=== PATIENT | female | born 1965 | race Caucasian/White ===

== ENCOUNTER 2018-12-21 15:45 | Emergency (ER) | payer MEDICAID ==
[~2018-12-21] VITALS: Ht 170.2 cm; Wt 65.0 kg
[2018-12-21 15:53] VITALS: BP 168/89
[2018-12-21] MEDS ORDERED: IBUPROFEN 200 MG TABLET PO ONE (16:30)
--- NOTE | 2018-12-21 16:39 | NUR ---
PT WC'D TO ROOM 7 W/ C/O L KNEE PAIN AFTER MGLF TODAY. PT C/O PAIN 05/11. PT RESTING ON GURNEY.
[2018-12-21] MEDS ORDERED: IBUPROFEN 200 MG TABLET ONE (16:49)
== END 2018-12-21 17:36 | disposition home or self-care (01) ==
LOC: ED 17:32
DX: G89.11 Acute pain due to trauma (principal); M25.562 Pain in left knee; J44.9 Chronic obstructive pulmonary disease, unspecified; F17.200 Nicotine dependence, unspecified, uncomplicated; Z86.73 Personal history of transient ischemic attack (TIA), and cerebral infarction without residual deficits; E11.9 Type 2 diabetes mellitus without complications; W01.0XXA Fall on same level from slipping, tripping and stumbling without subsequent striking against object, initial encounter; Y93.89 Activity, other specified; Y92.89 Other specified places as the place of occurrence of the external cause; Y99.8 Other external cause status
CPT/HCPCS: 99283

== ENCOUNTER 2019-01-01 11:09 | Inpatient (IN) | payer MEDICAID, OTHER ==
[~2019-01-01] VITALS: Ht 170.2 cm; Wt 63.8 kg
--- NOTE | 2019-01-01 11:28 | NUR ---
PT TO ROOM, FS COMPLETED-READING HIGH-ERP NOTIFIED. PT PLACED IN GOWN.
[2019-01-01] MEDS ORDERED: SODIUM CHLORIDE 0.9% 1,000ML IVBOLUS ONE ×2 (12:00→13:00)
[2019-01-01] MEDS ORDERED: AMPICILLIN/SULBACTAM 3 GM in SODIUM CHLORIDE 0.9% 100 ML IV ONE (12:00)
[2019-01-01 12:03] LABS: BASOPHILS # (AUTO) 0.03 x10^3/uL (0-0.1); BASOPHILS % (AUTO) 0 % (0-1); EOSINOPHILS # (AUTO) 0.02 x10^3/uL (0-0.4); EOSINOPHILS % (AUTO) 0 % (1-7); LYMPHOCYTES # (AUTO) 0.88 x10^3/uL (1-3.4); LYMPHOCYTES % (AUTO) 6 % (22-44); MD NO; MEAN CORPUSCULAR HEMOGLOBIN 32.1 pg (27.0-34.8); MEAN CORPUSCULAR VOLUME 100.1 fL (80-100); MEAN PLATELET VOLUME 9.9 fL (7.4-10.4); MONOCYTES # (AUTO) 0.75 x10^3/uL (0.2-0.8); MONOCYTES % (AUTO) 5 % (2-9); NEUTROPHILS # (AUTO) 13.24 x10^3/uL (1.8-6.8); NEUTROPHILS % (AUTO) 89 % (42-75); PLATELET COUNT 367 x10^3/uL (130-400); RED BLOOD COUNT 4.17 x10^6/uL (3.82-5.3); RED CELL DISTRIBUTION WIDTH 13.7 % (9.6-15.2)
[2019-01-01] MEDS ORDERED: ONDANSETRON 2MG/ML, 2ML ONE (12:03)
[2019-01-01 12:08] LABS: PH, VENOUS 7.395 pH (7.320-7.420)
--- NOTE | 2019-01-01 12:14 | NUR ---
UA ORDERED/COLLECTED/SENT TO LAB. IV PLACED BY MEDIC, BC X 1 DRAWN WITH START. LAB DRAWN 2ND BC. PT ON BP CUFF, PULSE OX. XR COMPLETED. WARM BLANKET PROVIDED, CALL LIGHT WITHIN REACH. US AT BS.
[2019-01-01 12:16] LABS: ALANINE AMINOTRANSFERASE 54 U/L (12-78); ALBUMIN 3.1 g/dL (3.4-5.0); ANION GAP 13 mmol/L (5-15); CALCIUM 9.5 mg/dL (8.5-10.1); CHLORIDE 86 mmol/L (98-107)
--- NOTE | 2019-01-01 12:20 | NUR ---
PT ALSO REPORTS HOMELESSNESS, MOVED FROM [place] TO [place] AFTER "BEING KICKED OUT" AND NOW LIVING IN [place]. PT STATES SHE HASN'T TAKEN ANY MEDS FOR A WEEK, DOESN'T HAVE THEM. PT STATES SHE STILL MONITORS BLOOD SUGAR FOUR TIMES A DAY, LAST TAKEN THIS AM WITH READING IN 200S.
[2019-01-01 12:23] LABS: ALKALINE PHOSPHATASE 260 U/L (45-117); TOTAL PROTEIN 8.8 g/dL (6.4-8.2)
[2019-01-01] MEDS ORDERED: ONDANSETRON 2MG/ML, 2ML IVPush ONE (12:30)
[2019-01-01 12:33] LABS: ACETONE, SERUM Trace (10mg/dL) mg/dL (Negative)
[2019-01-01 12:35] LABS: C-REACTIVE PROTEIN, QUANT > 19.00 mg/dL (0.02-0.49)
[2019-01-01 12:48] LABS: HCT (SEDRATE) 41.7 % (34.6-47.8)
[2019-01-01] MEDS ORDERED: SODIUM CHLORIDE 0.9% 1,000 ML IV ONE (12:52)
[2019-01-01] MEDS ORDERED: INSULIN REGULAR 100 UNITS/ML, 3ML VIAL IV ONE (13:00)
[2019-01-01] MEDS ORDERED: SODIUM CHLORIDE FLUSH 10ML SYR IVF PRN (13:00)
[2019-01-01] MEDS ORDERED: INSULIN SINGLE DOSE, ER SQ-INSULIN ONE (13:02)
--- NOTE | 2019-01-01 13:14 | NUR ---
INSULIN GIVEN PER ERP ORDER. 2ND LITER NS INFUSING. PT REPOSITIONED IN BED. UA SENT. [facility] FINISHED ASSEESSMENT.
--- NOTE | 2019-01-01 13:14 | NUR ---
MED REQUEST TO PHARMACY FOR ANTIBIOTIC.
[2019-01-01] MEDS ORDERED: ONDANSETRON 2MG/ML, 2ML IVPush PRN (13:30)
[2019-01-01] MEDS ORDERED: GLUCAGON 1 MG IM PRN (13:30)
[2019-01-01] MEDS ORDERED: LABETALOL 5MG/ML, 20ML IVPush PRN (13:30)
[2019-01-01] MEDS ORDERED: VANCOMYCIN PER PHARMACY MC PRN (13:30)
[2019-01-01] MEDS ORDERED: DEXTROSE 4 GM TAB.CHEW PO PRN (13:30)
[2019-01-01] MEDS ORDERED: ONDANSETRON ODT 4 MG PO PRN (13:30)
[2019-01-01] MEDS ORDERED: ZOSYN PER PHARMACY MC PRN (13:30)
[2019-01-01] MEDS ORDERED: hydrALAzine 20 MG/ML, 1ML IVPush PRN (13:30)
[2019-01-01] MEDS ORDERED: DEXTROSE 50%, 50ML SYRINGE IVPush PRN (13:30)
[2019-01-01 13:35] LABS: MICROSCOPIC AUTO
--- NOTE | 2019-01-01 13:41 | NUR ---
CALLED CARDIOVASCULAR US
[2019-01-01 13:42] LABS: CULTURE INDICATED? YES
[2019-01-01 13:51] LABS: INTERNATIONAL NORMALIZED RATIO 1.02 (0.93-1.1); PROTHROMBIN TIME 10.7 Seconds (9.6-11.5)
--- NOTE | 2019-01-01 13:51 | NUR ---
PT TO MRI, TO BE TRANSPORTED TO FLOOR FOLLOWING MRI EXAM.
[2019-01-01] MEDS ORDERED: GADOBUTROL 7.5 MMOL/7.5 ML PFS ONE (14:47)
[2019-01-01 15:01] VITALS: BP 111/81
[2019-01-01] MEDS: SODIUM CHLORIDE 0.9% 1,000 ML IV SCH ×2 (16:01→22:38)
[2019-01-01] MEDS: PIPERACILLIN/TAZO/PMX 3.375GM 50 ML IV SCH ×2 (16:02→20:29)
[2019-01-01 16:16] LABS: HEMOGLOBIN A1C 8.3 % (4.2-6.3)
[2019-01-01] MEDS: HEPARIN 5,000 UNITS/ML, 1ML SQ SCH ×2 (16:19→20:30)
[2019-01-01] MEDS: morphine SULFATE 10 MG/ML, 1ML IVPush PRN (16:19)
[2019-01-01] MEDS: INSULIN LISPRO 100 UNITS/ML, PEN SQ-INSULIN SCH ×2 (16:40→20:31)
[2019-01-01] MEDS: LINEZOLID PMX 600MG/300ML 300 ML IV SCH (18:38)
[2019-01-01] MEDS: OXYcodone IR 5MG TABLET PO PRN (18:38)
[2019-01-01 19:14] VITALS: BP 96/54
[2019-01-01] MEDS: ATORVASTATIN 40 MG TABLET PO SCH (20:29)
[2019-01-01] MEDS: INSULIN GLARGINE 100 UNITS/ML, PEN SQ-INSULIN SCH (20:31)
[2019-01-01] MEDS ORDERED: INSULIN GLARGINE 100 UNITS/ML, PEN SQ-INSULIN SCH (21:00)
[2019-01-01] MEDS: SODIUM CHLORIDE FLUSH 10ML SYR IVF SCH (21:00)
[2019-01-02] MEDS: SODIUM CHLORIDE 0.9% 1,000 ML IV SCH ×2 (00:36→19:44)
[2019-01-02] MEDS: OXYcodone IR 5MG TABLET PO PRN ×3 (00:45→18:52)
[2019-01-02 01:05] VITALS: BP 98/52
[2019-01-02] MEDS: LINEZOLID PMX 600MG/300ML 300 ML IV SCH (01:14)
[2019-01-02] MEDS: PIPERACILLIN/TAZO/PMX 3.375GM 50 ML IV SCH ×3 (03:14→19:40)
[2019-01-02] MEDS: INSULIN LISPRO 100 UNITS/ML, PEN SQ-INSULIN SCH ×5 (05:01→19:43)
[2019-01-02] MEDS: HEPARIN 5,000 UNITS/ML, 1ML SQ SCH ×3 (05:01→20:01)
[2019-01-02 05:39] LABS: MEAN CORPUSCULAR HEMOGLOBIN 32.5 pg (27.0-34.8); MEAN CORPUSCULAR HGB CONC 33.2 g/dL (32.4-35.8); MEAN CORPUSCULAR VOLUME 98.1 fL (80-100); MEAN PLATELET VOLUME 9.5 fL (7.4-10.4); PLATELET COUNT 409 x10^3/uL (130-400); RED BLOOD COUNT 3.62 x10^6/uL (3.82-5.3); RED CELL DISTRIBUTION WIDTH 13.9 % (9.6-15.2)
[2019-01-02 05:41] LABS: CHLORIDE 103 mmol/L (98-107)
[2019-01-02 05:51] LABS: ALANINE AMINOTRANSFERASE 45 U/L (12-78); ALBUMIN 2.2 g/dL (3.4-5.0); ALKALINE PHOSPHATASE 192 U/L (45-117); ANION GAP 8 mmol/L (5-15); CALCIUM 8.2 mg/dL (8.5-10.1); CREATININE 0.91 mg/dL (0.55-1.02); TOTAL PROTEIN 6.7 g/dL (6.4-8.2)
[2019-01-02 06:20] LABS: BASOPHILS # (AUTO) 0.01 x10^3/uL (0-0.1); BASOPHILS % (AUTO) 0 % (0-1); EOSINOPHILS # (AUTO) 0.15 x10^3/uL (0-0.4); EOSINOPHILS % (AUTO) 1 % (1-7); LYMPHOCYTES # (AUTO) 1.19 x10^3/uL (1-3.4); LYMPHOCYTES % (AUTO) 7 % (22-44); MD SCAN; MONOCYTES # (AUTO) 0.09 x10^3/uL (0.2-0.8); MONOCYTES % (AUTO) 1 % (2-9); NEUTROPHILS % (AUTO) 91 % (42-75)
[2019-01-02 07:08] VITALS: BP 93/61
[2019-01-02] MEDS: SODIUM CHLORIDE FLUSH 10ML SYR IVF SCH ×2 (08:07→20:00)
[2019-01-02] MEDS: ASPIRIN 81 MG TABLET CHEW PO SCH (08:07)
[2019-01-02] MEDS: INSULIN GLARGINE 100 UNITS/ML, PEN SQ-INSULIN SCH ×2 (08:09→20:01)
[2019-01-02] MEDS ORDERED: OMNIPAQUE 350 MG/ML, 150 ML BOTTLE ONE (09:22)
[2019-01-02] MEDS ORDERED: VANCOMYCIN PER PHARMACY MC PRN (11:00)
[2019-01-02] MEDS ORDERED: VANCOMYCIN PMX 1GM/200ML 200 ML IV ONE (11:00)
[2019-01-02] MEDS ORDERED: PHARMACOKINETIC MONITORING MC PRN (11:30)
[2019-01-02] MEDS: VANCOMYCIN 2,000 MG in SODIUM CHLORIDE 0.9% 500 ML IV SCH (12:25)
[2019-01-02 15:17] VITALS: BP 108/68
[2019-01-02 17:42] LABS: ANION GAP 9 mmol/L (5-15); CHLORIDE 104 mmol/L (98-107); CREATININE 0.81 mg/dL (0.55-1.02)
[2019-01-02 18:47] VITALS: BP 115/84
[2019-01-02] MEDS: ATORVASTATIN 40 MG TABLET PO SCH (20:00)
[2019-01-03] MEDS: INSULIN LISPRO 100 UNITS/ML, PEN SQ-INSULIN SCH ×6 (00:28→20:19)
[2019-01-03 00:29] VITALS: BP 112/73
[2019-01-03] MEDS: PIPERACILLIN/TAZO/PMX 3.375GM 50 ML IV SCH ×2 (00:35→08:06)
[2019-01-03] MEDS: OXYcodone IR 5MG TABLET PO PRN ×2 (00:39→06:09)
[2019-01-03] MEDS: SODIUM CHLORIDE 0.9% 1,000 ML IV SCH ×2 (04:44→20:16)
[2019-01-03] MEDS: HEPARIN 5,000 UNITS/ML, 1ML SQ SCH ×3 (04:59→20:03)
[2019-01-03 05:58] LABS: MEAN CORPUSCULAR HEMOGLOBIN 32.4 pg (27.0-34.8); MEAN CORPUSCULAR HGB CONC 33.1 g/dL (32.4-35.8); MEAN CORPUSCULAR VOLUME 97.8 fL (80-100); MEAN PLATELET VOLUME 9.1 fL (7.4-10.4); PLATELET COUNT 406 x10^3/uL (130-400); RED BLOOD COUNT 3.27 x10^6/uL (3.82-5.3)
[2019-01-03] MEDS: VANCOMYCIN 2,000 MG in SODIUM CHLORIDE 0.9% 500 ML IV SCH (06:04)
[2019-01-03 06:05] LABS: CHLORIDE 106 mmol/L (98-107)
[2019-01-03 06:13] LABS: ALANINE AMINOTRANSFERASE 46 U/L (12-78); ALBUMIN 1.8 g/dL (3.4-5.0); ALKALINE PHOSPHATASE 165 U/L (45-117); ANION GAP 9 mmol/L (5-15); BILIRUBIN,TOTAL 0.9 mg/dL (0.2-1.0); CALCIUM 7.7 mg/dL (8.5-10.1); CREATININE 0.75 mg/dL (0.55-1.02); TOTAL PROTEIN 5.8 g/dL (6.4-8.2)
[2019-01-03 07:01] LABS: BASOPHILS # (AUTO) 0.06 x10^3/uL (0-0.1); BASOPHILS % (AUTO) 0 % (0-1); EOSINOPHILS # (AUTO) 0.17 x10^3/uL (0-0.4); EOSINOPHILS % (AUTO) 1 % (1-7); LYMPHOCYTES # (AUTO) 1.19 x10^3/uL (1-3.4); LYMPHOCYTES % (AUTO) 8 % (22-44); MD SCAN; MONOCYTES # (AUTO) 0.53 x10^3/uL (0.2-0.8); MONOCYTES % (AUTO) 3 % (2-9); NEUTROPHILS # (AUTO) 13.85 x10^3/uL (1.8-6.8); NEUTROPHILS % (AUTO) 88 % (42-75)
[2019-01-03 07:14] VITALS: BP 117/77
[2019-01-03] MEDS: SODIUM CHLORIDE FLUSH 10ML SYR IVF SCH ×2 (08:06→20:16)
[2019-01-03] MEDS: ASPIRIN 81 MG TABLET CHEW PO SCH (08:07)
[2019-01-03] MEDS: morphine SULFATE 10 MG/ML, 1ML IVPush PRN ×3 (08:07→17:22)
[2019-01-03] MEDS: INSULIN GLARGINE 100 UNITS/ML, PEN SQ-INSULIN SCH (08:12)
[2019-01-03] MEDS: POTASSIUM CHLORIDE 20 MEQ TAB.ER.PRT PO SCH ×3 (08:15→13:49)
[2019-01-03] MEDS ORDERED: MAGNESIUM SULFATE PMX 4GM/100M 100 ML IV ONE (08:30)
[2019-01-03] MEDS ORDERED: POTASSIUM PHOSPHATE 44 MEQ in SODIUM CHLORIDE 0.9% 500 ML IV ONE (08:30)
[2019-01-03] MEDS ORDERED: VANCOMYCIN 1,300 MG in SODIUM CHLORIDE 0.9% 250 ML IV SCH (11:00)
[2019-01-03 11:08] LABS: MEAN CORPUSCULAR HEMOGLOBIN 31.6 pg (27.0-34.8); MEAN CORPUSCULAR HGB CONC 32.8 g/dL (32.4-35.8); MEAN CORPUSCULAR VOLUME 96.1 fL (80-100); MEAN PLATELET VOLUME 8.2 fL (7.4-10.4); PLATELET COUNT 422 x10^3/uL (130-400); RED BLOOD COUNT 3.14 x10^6/uL (3.82-5.3); RED CELL DISTRIBUTION WIDTH 14.4 % (9.6-15.2)
[2019-01-03 11:21] LABS: BASOPHILS # (AUTO) 0.02 x10^3/uL (0-0.1); BASOPHILS % (AUTO) 0 % (0-1); EOSINOPHILS % (AUTO) 1 % (1-7); LYMPHOCYTES # (AUTO) 1.47 x10^3/uL (1-3.4); LYMPHOCYTES % (AUTO) 9 % (22-44); MD SCAN; MONOCYTES # (AUTO) 0.88 x10^3/uL (0.2-0.8); MONOCYTES % (AUTO) 6 % (2-9); NEUTROPHILS # (AUTO) 13.39 x10^3/uL (1.8-6.8); NEUTROPHILS % (AUTO) 84 % (42-75)
[2019-01-03 12:35] VITALS: BP 104/65
[2019-01-03] MEDS ORDERED: LIDOCAINE-MPF 1%, 5ML ONE ×2 (13:52)
[2019-01-03] MEDS ORDERED: PROTAMINE SULFATE 10 MG/ML, 25ML ONE (13:58)
[2019-01-03] MEDS ORDERED: FLUMAZENIL 0.1 MG/1 ML, 5ML ONE (13:58)
[2019-01-03] MEDS ORDERED: MIDAZOLAM 1 MG/ML, 5ML ONE (13:58)
[2019-01-03] MEDS ORDERED: FENTANYL PF 100 MCG/2ML ONE ×2 (13:58)
[2019-01-03] MEDS ORDERED: HEPARIN 1,000 UNITS/ML, 10ML ONE (13:58)
[2019-01-03] MEDS ORDERED: NALOXONE 1 MG/ML, 2ML ONE (13:58)
[2019-01-03] MEDS ORDERED: DIPHENHYDRAMINE 50 MG/ML, 1ML ONE (14:46)
[2019-01-03] MEDS ORDERED: VISIPAQUE 270 MG/ML, 50ML BOTTLE ONE (16:06)
[2019-01-03] MEDS: PIPERACILLIN/TAZO/PMX 4.5GM 100 ML IV SCH (17:17)
[2019-01-03] MEDS: VANCOMYCIN 1,300 MG in SODIUM CHLORIDE 0.9% 250 ML IV SCH (17:53)
[2019-01-03 19:09] VITALS: BP 130/82
[2019-01-03] MEDS: ATORVASTATIN 40 MG TABLET PO SCH (20:15)
[2019-01-03] MEDS ORDERED: CLOPIDOGREL 300 MG TABLET PO ONE (21:00)
[2019-01-04] MEDS: PIPERACILLIN/TAZO/PMX 4.5GM 100 ML IV SCH ×2 (00:24→08:38)
[2019-01-04] MEDS: INSULIN LISPRO 100 UNITS/ML, PEN SQ-INSULIN SCH ×6 (00:24→20:21)
[2019-01-04] MEDS: OXYcodone IR 5MG TABLET PO PRN ×4 (00:57→22:55)
[2019-01-04 01:03] VITALS: BP 118/68
[2019-01-04] MEDS: SODIUM CHLORIDE 0.9% 1,000 ML IV SCH ×3 (05:28→20:22)
[2019-01-04] MEDS: HEPARIN 5,000 UNITS/ML, 1ML SQ SCH ×3 (05:29→20:22)
[2019-01-04] MEDS: VANCOMYCIN 1,300 MG in SODIUM CHLORIDE 0.9% 250 ML IV SCH (05:29)
[2019-01-04 05:55] LABS: MEAN CORPUSCULAR HEMOGLOBIN 31.5 pg (27.0-34.8); MEAN CORPUSCULAR HGB CONC 32.8 g/dL (32.4-35.8); MEAN CORPUSCULAR VOLUME 96.2 fL (80-100); PLATELET COUNT 395 x10^3/uL (130-400); RED BLOOD COUNT 3.04 x10^6/uL (3.82-5.3); RED CELL DISTRIBUTION WIDTH 14.2 % (9.6-15.2)
[2019-01-04 06:00] LABS: ANION GAP 10 mmol/L (5-15); CALCIUM 7.3 mg/dL (8.5-10.1); CHLORIDE 109 mmol/L (98-107); CREATININE 0.69 mg/dL (0.55-1.02)
[2019-01-04 06:40] LABS: BASOPHILS # (AUTO) 0.02 x10^3/uL (0-0.1); BASOPHILS % (AUTO) 0 % (0-1); EOSINOPHILS # (AUTO) 0.11 x10^3/uL (0-0.4); EOSINOPHILS % (AUTO) 1 % (1-7); LYMPHOCYTES # (AUTO) 0.99 x10^3/uL (1-3.4); LYMPHOCYTES % (AUTO) 7 % (22-44); MD SCAN; MONOCYTES # (AUTO) 0.81 x10^3/uL (0.2-0.8); MONOCYTES % (AUTO) 6 % (2-9); NEUTROPHILS # (AUTO) 12.54 x10^3/uL (1.8-6.8); NEUTROPHILS % (AUTO) 87 % (42-75)
[2019-01-04 08:26] VITALS: BP 105/61
[2019-01-04] MEDS: CLOPIDOGREL 75 MG TABLET PO SCH (08:38)
[2019-01-04] MEDS: SODIUM CHLORIDE FLUSH 10ML SYR IVF SCH ×2 (08:38→20:22)
[2019-01-04] MEDS: ASPIRIN 81 MG TABLET CHEW PO SCH (08:38)
[2019-01-04] MEDS: NAFCILLIN 2 GM in DEXTROSE 5% 100 ML IV SCH ×3 (12:49→20:21)
[2019-01-04 12:58] VITALS: BP 120/77
[2019-01-04] MEDS ORDERED: POTASSIUM CHLORIDE 20 MEQ TAB.ER.PRT PO ONE (19:30)
[2019-01-04 20:00] VITALS: BP 105/66
[2019-01-04] MEDS: ATORVASTATIN 40 MG TABLET PO SCH (20:22)
[2019-01-05] MEDS: INSULIN LISPRO 100 UNITS/ML, PEN SQ-INSULIN SCH ×6 (00:11→21:11)
[2019-01-05] MEDS: NAFCILLIN 2 GM in DEXTROSE 5% 100 ML IV SCH ×7 (00:11→23:41)
[2019-01-05 01:36] VITALS: BP 97/62
[2019-01-05] MEDS: HEPARIN 5,000 UNITS/ML, 1ML SQ SCH (04:30)
[2019-01-05] MEDS: OXYcodone IR 5MG TABLET PO PRN (04:30)
[2019-01-05] MEDS: SODIUM CHLORIDE 0.9% 1,000 ML IV SCH ×2 (04:37→13:00)
[2019-01-05 05:59] LABS: MEAN CORPUSCULAR HEMOGLOBIN 31.8 pg (27.0-34.8); MEAN CORPUSCULAR HGB CONC 33.1 g/dL (32.4-35.8); MEAN CORPUSCULAR VOLUME 95.8 fL (80-100); MEAN PLATELET VOLUME 7.6 fL (7.4-10.4); PLATELET COUNT 433 x10^3/uL (130-400); RED BLOOD COUNT 3.15 x10^6/uL (3.82-5.3); RED CELL DISTRIBUTION WIDTH 14.5 % (9.6-15.2)
[2019-01-05 06:01] LABS: ANION GAP 7 mmol/L (5-15); CALCIUM 7.4 mg/dL (8.5-10.1); CHLORIDE 108 mmol/L (98-107); CREATININE 0.72 mg/dL (0.55-1.02)
[2019-01-05 06:21] LABS: MD YES
[2019-01-05 06:23] LABS: BAND#(MANUAL) 0.27 x10^3/uL; BANDS%(MANUAL) 2 % (0-7); BASOS#(MANUAL) 0.14 x10^3/uL (0-0.1); BASOS% (MANUAL) 1 % (0-1); EOS#(MANUAL) 0.27 x10^3/uL (0.0-0.4); EOS% (MANUAL) 2 % (1-7); LYMPH#(MANUAL) 1.37 x10^3/uL (1-3.4); LYMPHS% (MANUAL) 10 % (22-44); METAMYELOCYTES# (MANUAL) 0.27 x10^3/uL (0-0); METAMYELOCYTES% (MANUAL) 2 % (0-1); MONOS#(MANUAL) 1.23 x10^3/uL (0.3-2.7); MONOS% (MANUAL) 9 % (2-9); SEG#(MANUAL) 10.14 x10^3/uL (1.8-6.8); SEGS% (MANUAL) 74 % (42-75)
[2019-01-05 06:24] LABS: <PLATELET ESTIMATE> INCREASED; <PLT MORPHOLOGY> NORMAL PLT MORPH; POLYCHROMASIA 1+
[2019-01-05 07:22] VITALS: BP 104/62
[2019-01-05] MEDS: SODIUM CHLORIDE FLUSH 10ML SYR IVF SCH ×2 (07:28→21:10)
[2019-01-05] MEDS: POTASSIUM CHLORIDE 20 MEQ TAB.ER.PRT PO SCH ×2 (07:30→15:14)
[2019-01-05] MEDS: ASPIRIN 81 MG TABLET CHEW PO SCH (08:16)
[2019-01-05] MEDS: CLOPIDOGREL 75 MG TABLET PO SCH (08:17)
[2019-01-05] MEDS ORDERED: FENTANYL PF 100 MCG/2ML ONE ×4 (08:31→10:21)
[2019-01-05] MEDS ORDERED: MIDAZOLAM 1 MG/ML, 2ML ONE ×2 (08:31→11:20)
[2019-01-05] MEDS ORDERED: ROCURONIUM 10MG/ML,5ML ONE (09:32)
[2019-01-05] MEDS ORDERED: SUCCINYLCHOLINE 20 MG/ML, 10ML ONE (09:32)
[2019-01-05] MEDS ORDERED: CEFAZOLIN 1,000 MG ONE (09:32)
[2019-01-05] MEDS ORDERED: PROPOFOL 10 MG/ML, 20ML ONE (09:32)
[2019-01-05] MEDS ORDERED: HYDROmorphone 2 MG/ML, 1ML ONE ×2 (10:21→11:20)
[2019-01-05] MEDS: HYDROmorphone 2 MG/ML, 1ML IVPush PRN ×6 (10:24→11:48)
[2019-01-05] MEDS: FENTANYL PF 100 MCG/2ML IV PRN ×3 (10:30→10:50)
[2019-01-05] MEDS ORDERED: ONDANSETRON 2MG/ML, 2ML IV PRN ×2 (11:00→13:00)
[2019-01-05] MEDS ORDERED: ACETAMINOPHEN 325 MG TABLET PO PRN (11:00)
[2019-01-05] MEDS ORDERED: LABETALOL 5MG/ML, 20ML IV PRN (11:00)
[2019-01-05] MEDS ORDERED: hydrALAzine 20 MG/ML, 1ML IV PRN (11:00)
[2019-01-05] MEDS ORDERED: OXYcodone 5 MG/5 ML ORAL.SOL UDC PO PRN (11:00)
[2019-01-05] MEDS ORDERED: MIDAZOLAM 1 MG/ML, 2ML IV PRN (11:00)
[2019-01-05] MEDS ORDERED: OXYcodone 5 MG/5 ML ORAL.SOL UDC ONE (11:01)
[2019-01-05] MEDS ORDERED: KETOROLAC 30 MG/1 ML IV PRN (13:00)
[2019-01-05 13:59] VITALS: BP 109/71
[2019-01-05] MEDS: D5%-0.45NACL+KCL 20MEQ 1,000 ML IV SCH (14:37)
[2019-01-05] MEDS: ENOXAPARIN 40 MG/0.4 ML SQ SCH (15:14)
[2019-01-05 19:03] VITALS: BP 112/66
[2019-01-05] MEDS: ATORVASTATIN 40 MG TABLET PO SCH (21:11)
[2019-01-06 00:26] VITALS: BP 110/68
[2019-01-06] MEDS: INSULIN LISPRO 100 UNITS/ML, PEN SQ-INSULIN SCH ×6 (00:57→21:00)
[2019-01-06] MEDS: NAFCILLIN 2 GM in DEXTROSE 5% 100 ML IV SCH ×4 (04:25→22:01)
[2019-01-06 05:27] LABS: MEAN CORPUSCULAR HGB CONC 32.6 g/dL (32.4-35.8); MEAN CORPUSCULAR VOLUME 98.2 fL (80-100); MEAN PLATELET VOLUME 7.6 fL (7.4-10.4); PLATELET COUNT 505 x10^3/uL (130-400); RED BLOOD COUNT 3.08 x10^6/uL (3.82-5.3); RED CELL DISTRIBUTION WIDTH 14.8 % (9.6-15.2)
[2019-01-06 05:34] LABS: ANION GAP 5 mmol/L (5-15); CALCIUM 7.6 mg/dL (8.5-10.1); CHLORIDE 109 mmol/L (98-107)
[2019-01-06 05:35] LABS: ALBUMIN 1.5 g/dL (3.4-5.0); CREATININE 0.67 mg/dL (0.55-1.02)
[2019-01-06 05:50] LABS: MD YES
[2019-01-06 05:52] LABS: BAND#(MANUAL) 0.25 x10^3/uL; BANDS%(MANUAL) 3 % (0-7); BASOS#(MANUAL) 0.17 x10^3/uL (0-0.1); BASOS% (MANUAL) 2 % (0-1); EOS#(MANUAL) 0.34 x10^3/uL (0.0-0.4); EOS% (MANUAL) 4 % (1-7); LYMPH#(MANUAL) 1.09 x10^3/uL (1-3.4); LYMPHS% (MANUAL) 13 % (22-44); METAMYELOCYTES# (MANUAL) 0.17 x10^3/uL (0-0); METAMYELOCYTES% (MANUAL) 2 % (0-1); MONOS% (MANUAL) 6 % (2-9); MYELOCYTES# (MANUAL) 0.17 x10^3/uL (0-0); MYELOCYTES% (MANUAL) 2 % (0-0); SEG#(MANUAL) 5.71 x10^3/uL (1.8-6.8); SEGS% (MANUAL) 68 % (42-75)
[2019-01-06 05:53] LABS: <PLATELET ESTIMATE> INCREASED; <PLT MORPHOLOGY> NORMAL PLT MORPH; POLYCHROMASIA 1+
[2019-01-06] MEDS: SODIUM CHLORIDE FLUSH 10ML SYR IVF SCH ×2 (07:10→22:01)
[2019-01-06 08:00] VITALS: BP 130/89
[2019-01-06] MEDS: ASPIRIN 81 MG TABLET CHEW PO SCH (09:00)
[2019-01-06] MEDS: D5%-0.45NACL+KCL 20MEQ 1,000 ML IV SCH (09:00)
[2019-01-06] MEDS: CLOPIDOGREL 75 MG TABLET PO SCH (09:00)
[2019-01-06 12:35] VITALS: BP 101/70
[2019-01-06] MEDS: ENOXAPARIN 40 MG/0.4 ML SQ SCH (16:11)
[2019-01-06 18:41] VITALS: BP 144/78
[2019-01-06 19:01] VITALS: BP 119/76
[2019-01-06] MEDS: ATORVASTATIN 40 MG TABLET PO SCH (22:01)
[2019-01-07 01:10] VITALS: BP 126/79
[2019-01-07] MEDS: NAFCILLIN 2 GM in DEXTROSE 5% 100 ML IV SCH ×6 (02:13→21:04)
[2019-01-07] MEDS: SODIUM CHLORIDE FLUSH 10ML SYR IVF SCH ×2 (07:24→20:58)
[2019-01-07 08:00] VITALS: BP 100/66
[2019-01-07] MEDS: D5%-0.45NACL+KCL 20MEQ 1,000 ML IV SCH ×2 (09:12→21:02)
[2019-01-07] MEDS: INSULIN LISPRO 100 UNITS/ML, PEN SQ-INSULIN SCH ×4 (09:14→20:48)
[2019-01-07] MEDS: CLOPIDOGREL 75 MG TABLET PO SCH (09:15)
[2019-01-07] MEDS: ASPIRIN 81 MG TABLET CHEW PO SCH (09:15)
[2019-01-07 14:21] VITALS: BP 124/73
[2019-01-07] MEDS: ENOXAPARIN 40 MG/0.4 ML SQ SCH (17:13)
[2019-01-07 19:16] VITALS: BP 110/72
[2019-01-07] MEDS: ATORVASTATIN 40 MG TABLET PO SCH (20:58)
[2019-01-08 00:21] VITALS: BP 125/75
[2019-01-08] MEDS: NAFCILLIN 2 GM in DEXTROSE 5% 100 ML IV SCH ×6 (01:23→22:02)
[2019-01-08 07:30] VITALS: BP 123/80
[2019-01-08] MEDS: SODIUM CHLORIDE FLUSH 10ML SYR IVF SCH ×2 (08:19→20:38)
[2019-01-08] MEDS: INSULIN LISPRO 100 UNITS/ML, PEN SQ-INSULIN SCH ×4 (08:19→20:37)
[2019-01-08] MEDS: CLOPIDOGREL 75 MG TABLET PO SCH (08:19)
[2019-01-08] MEDS: ASPIRIN 81 MG TABLET CHEW PO SCH (08:19)
[2019-01-08 14:00] VITALS: BP 122/75
[2019-01-08] MEDS: D5%-0.45NACL+KCL 20MEQ 1,000 ML IV SCH (14:18)
[2019-01-08] MEDS: ENOXAPARIN 40 MG/0.4 ML SQ SCH (17:40)
[2019-01-08 19:05] VITALS: BP 100/61
[2019-01-08] MEDS: ATORVASTATIN 40 MG TABLET PO SCH (20:37)
[2019-01-09 01:35] VITALS: BP 107/65
[2019-01-09] MEDS: NAFCILLIN 2 GM in DEXTROSE 5% 100 ML IV SCH ×3 (01:53→10:00)
[2019-01-09] MEDS: D5%-0.45NACL+KCL 20MEQ 1,000 ML IV SCH ×2 (04:00→18:04)
[2019-01-09 05:59] LABS: HCT (SEDRATE) 29.9 % (34.6-47.8)
[2019-01-09 07:01] VITALS: BP 98/62
[2019-01-09] MEDS: CLOPIDOGREL 75 MG TABLET PO SCH (08:28)
[2019-01-09] MEDS: ASPIRIN 81 MG TABLET CHEW PO SCH (08:28)
[2019-01-09] MEDS: INSULIN LISPRO 100 UNITS/ML, PEN SQ-INSULIN SCH ×4 (08:29→22:33)
[2019-01-09] MEDS: SODIUM CHLORIDE FLUSH 10ML SYR IVF SCH ×2 (09:00→20:48)
[2019-01-09] MEDS ORDERED: LORazepam 2 MG/ML, 1ML IVPush ONE (10:00)
[2019-01-09] MEDS ORDERED: HYDROmorphone 1 MG/ML, 1ML INJ IV ONE (10:00)
[2019-01-09] MEDS ORDERED: HYDROmorphone 2 MG/ML, 1ML ONE (10:08)
[2019-01-09] MEDS: CEFAZOLIN PMX 1GM/50ML 50 ML IV SCH ×2 (12:07→18:04)
[2019-01-09 12:58] VITALS: BP 110/70
[2019-01-09] MEDS: ENOXAPARIN 40 MG/0.4 ML SQ SCH (18:04)
[2019-01-09 18:51] VITALS: BP 134/75
[2019-01-09] MEDS: ATORVASTATIN 40 MG TABLET PO SCH (20:48)
[2019-01-09] MEDS: morphine SULFATE 10 MG/ML, 1ML IVPush PRN (20:48)
[2019-01-09] MEDS: OXYcodone IR 5MG TABLET PO PRN (22:33)
[2019-01-10 01:11] VITALS: BP 105/72
[2019-01-10] MEDS: morphine SULFATE 10 MG/ML, 1ML IVPush PRN ×6 (01:11→23:31)
[2019-01-10] MEDS: CEFAZOLIN PMX 1GM/50ML 50 ML IV SCH ×3 (02:40→18:30)
[2019-01-10] MEDS: OXYcodone IR 5MG TABLET PO PRN ×2 (03:16→19:50)
[2019-01-10] MEDS: D5%-0.45NACL+KCL 20MEQ 1,000 ML IV SCH ×2 (06:00→23:31)
[2019-01-10 07:35] VITALS: BP 135/80
[2019-01-10] MEDS: CLOPIDOGREL 75 MG TABLET PO SCH (08:36)
[2019-01-10] MEDS: ASPIRIN 81 MG TABLET CHEW PO SCH (08:36)
[2019-01-10] MEDS: INSULIN LISPRO 100 UNITS/ML, PEN SQ-INSULIN SCH ×4 (08:36→19:45)
[2019-01-10] MEDS: SODIUM CHLORIDE FLUSH 10ML SYR IVF SCH ×2 (08:42→19:37)
[2019-01-10 13:52] VITALS: BP 104/69
[2019-01-10] MEDS: ENOXAPARIN 40 MG/0.4 ML SQ SCH (16:40)
[2019-01-10 19:26] VITALS: BP 106/67
[2019-01-10] MEDS: ATORVASTATIN 40 MG TABLET PO SCH (19:37)
[2019-01-10] MEDS: CEFAZOLIN 2,000 MG in SODIUM CHLORIDE 0.9% 50 ML IV SCH (19:41)
[2019-01-11] VITALS (7 sets, daily range): BP systolic 89–108; BP diastolic 61–75
[2019-01-11] MEDS: CEFAZOLIN 2,000 MG in SODIUM CHLORIDE 0.9% 50 ML IV SCH (03:18)
[2019-01-11] MEDS: OXYcodone IR 5MG TABLET PO PRN ×2 (05:10→11:48)
[2019-01-11] MEDS: CLOPIDOGREL 75 MG TABLET PO SCH (08:28)
[2019-01-11] MEDS: ASPIRIN 81 MG TABLET CHEW PO SCH (08:28)
[2019-01-11] MEDS: INSULIN LISPRO 100 UNITS/ML, PEN SQ-INSULIN SCH ×4 (08:28→19:36)
[2019-01-11] MEDS: SODIUM CHLORIDE FLUSH 10ML SYR IVF SCH ×2 (08:29→19:42)
[2019-01-11] MEDS: ENOXAPARIN 40 MG/0.4 ML SQ SCH (08:58)
[2019-01-11] MEDS: morphine SULFATE 10 MG/ML, 1ML IVPush PRN ×3 (09:02→19:40)
[2019-01-11] MEDS ORDERED: SODIUM CHLORIDE 0.9%, 500ML IVBOLUS ONE (09:30)
[2019-01-11] MEDS ORDERED: CEFAZOLIN PMX 2GM/50ML 50 ML IVPB SCH ×2 (10:00→11:30)
[2019-01-11] MEDS: CEFAZOLIN PMX 2GM/100ML 100 ML IVPB SCH ×2 (11:49→19:41)
[2019-01-11] MEDS: ATORVASTATIN 40 MG TABLET PO SCH (19:41)
[2019-01-12 01:31] VITALS: BP 99/65
[2019-01-12] MEDS: OXYcodone IR 5MG TABLET PO PRN ×3 (01:44→23:45)
[2019-01-12] MEDS: CEFAZOLIN PMX 2GM/100ML 100 ML IVPB SCH ×3 (03:55→20:52)
[2019-01-12] MEDS: morphine SULFATE 10 MG/ML, 1ML IVPush PRN ×5 (06:31→20:52)
[2019-01-12] MEDS: ENOXAPARIN 40 MG/0.4 ML SQ SCH (08:29)
[2019-01-12] MEDS: CLOPIDOGREL 75 MG TABLET PO SCH (09:00)
[2019-01-12] MEDS: ASPIRIN 81 MG TABLET CHEW PO SCH (09:00)
[2019-01-12] MEDS: SODIUM CHLORIDE FLUSH 10ML SYR IVF SCH ×2 (09:01→20:53)
[2019-01-12] MEDS: INSULIN LISPRO 100 UNITS/ML, PEN SQ-INSULIN SCH ×4 (09:01→21:14)
[2019-01-12 09:44] VITALS: BP 101/6
[2019-01-12 10:35] VITALS: BP 103/63
[2019-01-12 14:10] VITALS: BP 102/68
[2019-01-12 19:29] VITALS: BP 102/62
[2019-01-12] MEDS: ATORVASTATIN 40 MG TABLET PO SCH (20:52)
[2019-01-13 01:08] VITALS: BP 108/77
[2019-01-13] MEDS: morphine SULFATE 10 MG/ML, 1ML IVPush PRN ×3 (01:12→20:09)
[2019-01-13 03:39] LABS: CREATININE 0.85 mg/dL (0.55-1.02)
[2019-01-13] MEDS: CEFAZOLIN PMX 2GM/100ML 100 ML IVPB SCH ×3 (04:51→21:13)
[2019-01-13] MEDS: OXYcodone IR 5MG TABLET PO PRN ×4 (04:55→22:09)
[2019-01-13 07:03] VITALS: BP 99/67
[2019-01-13] MEDS: INSULIN LISPRO 100 UNITS/ML, PEN SQ-INSULIN SCH ×4 (07:31→21:13)
[2019-01-13] MEDS: SODIUM CHLORIDE FLUSH 10ML SYR IVF SCH ×2 (07:32→21:14)
[2019-01-13] MEDS: ASPIRIN 81 MG TABLET CHEW PO SCH (07:32)
[2019-01-13] MEDS: CLOPIDOGREL 75 MG TABLET PO SCH (07:32)
[2019-01-13 15:21] VITALS: BP 95/65
[2019-01-13] MEDS: ENOXAPARIN 40 MG/0.4 ML SQ SCH (16:12)
[2019-01-13 19:29] VITALS: BP 101/58
[2019-01-13] MEDS: ATORVASTATIN 40 MG TABLET PO SCH (21:12)
[2019-01-14 01:27] VITALS: BP 104/55
[2019-01-14] MEDS: morphine SULFATE 10 MG/ML, 1ML IVPush PRN ×3 (02:38→21:21)
[2019-01-14 05:27] LABS: BASOPHILS # (AUTO) 0.11 x10^3/uL (0-0.1); BASOPHILS % (AUTO) 1 % (0-1); EOSINOPHILS # (AUTO) 0.15 x10^3/uL (0-0.4); EOSINOPHILS % (AUTO) 2 % (1-7); LYMPHOCYTES # (AUTO) 2.34 x10^3/uL (1-3.4); LYMPHOCYTES % (AUTO) 26 % (22-44); MD NO; MEAN CORPUSCULAR HEMOGLOBIN 32.5 pg (27.0-34.8); MEAN CORPUSCULAR HGB CONC 32.9 g/dL (32.4-35.8); MEAN CORPUSCULAR VOLUME 98.9 fL (80-100); MEAN PLATELET VOLUME 7.9 fL (7.4-10.4); MONOCYTES # (AUTO) 0.58 x10^3/uL (0.2-0.8); MONOCYTES % (AUTO) 7 % (2-9); NEUTROPHILS # (AUTO) 5.81 x10^3/uL (1.8-6.8); NEUTROPHILS % (AUTO) 65 % (42-75); PLATELET COUNT 662 x10^3/uL (130-400); RED BLOOD COUNT 2.62 x10^6/uL (3.82-5.3); RED CELL DISTRIBUTION WIDTH 15.4 % (9.6-15.2)
[2019-01-14 05:38] LABS: ALANINE AMINOTRANSFERASE 21 U/L (12-78); ALBUMIN 2.4 g/dL (3.4-5.0); ANION GAP 7 mmol/L (5-15); CALCIUM 8.9 mg/dL (8.5-10.1); CHLORIDE 105 mmol/L (98-107); CREATININE 0.87 mg/dL (0.55-1.02)
[2019-01-14 05:41] LABS: ALKALINE PHOSPHATASE 141 U/L (45-117); BILIRUBIN,TOTAL 0.7 mg/dL (0.2-1.0); C-REACTIVE PROTEIN, QUANT 0.67 mg/dL (0.02-0.49); TOTAL PROTEIN 8.5 g/dL (6.4-8.2)
[2019-01-14] MEDS: CEFAZOLIN PMX 2GM/100ML 100 ML IVPB SCH ×3 (05:42→21:21)
[2019-01-14] MEDS: OXYcodone IR 5MG TABLET PO PRN ×3 (05:42→19:28)
[2019-01-14 06:17] LABS: HCT (SEDRATE) 26.2 % (34.6-47.8)
[2019-01-14] MEDS: INSULIN LISPRO 100 UNITS/ML, PEN SQ-INSULIN SCH ×4 (07:00→19:33)
[2019-01-14] MEDS: SODIUM CHLORIDE FLUSH 10ML SYR IVF SCH ×2 (07:40→21:22)
[2019-01-14] MEDS: CLOPIDOGREL 75 MG TABLET PO SCH (08:09)
[2019-01-14] MEDS: ASPIRIN 81 MG TABLET CHEW PO SCH (08:09)
[2019-01-14 08:11] VITALS: BP 108/72
[2019-01-14 14:29] VITALS: BP 94/54
[2019-01-14] MEDS: ENOXAPARIN 40 MG/0.4 ML SQ SCH (17:03)
[2019-01-14 18:33] VITALS: BP 90/60
[2019-01-14] MEDS: ATORVASTATIN 40 MG TABLET PO SCH (21:21)
[2019-01-15 02:36] VITALS: BP 95/63
[2019-01-15] MEDS: morphine SULFATE 10 MG/ML, 1ML IVPush PRN ×2 (03:00→23:05)
[2019-01-15] MEDS: CEFAZOLIN PMX 2GM/100ML 100 ML IVPB SCH ×3 (06:01→21:08)
[2019-01-15 08:03] VITALS: BP 94/61
[2019-01-15] MEDS: OXYcodone IR 5MG TABLET PO PRN ×4 (08:12→21:34)
[2019-01-15] MEDS: INSULIN LISPRO 100 UNITS/ML, PEN SQ-INSULIN SCH ×4 (08:15→21:08)
[2019-01-15] MEDS: ASPIRIN 81 MG TABLET CHEW PO SCH (08:16)
[2019-01-15] MEDS: CLOPIDOGREL 75 MG TABLET PO SCH (08:16)
[2019-01-15] MEDS: SODIUM CHLORIDE FLUSH 10ML SYR IVF SCH ×2 (08:16→21:09)
[2019-01-15 12:57] VITALS: BP 104/68
[2019-01-15] MEDS: ENOXAPARIN 40 MG/0.4 ML SQ SCH (16:33)
[2019-01-15 18:51] VITALS: BP 92/60
[2019-01-15] MEDS: ATORVASTATIN 40 MG TABLET PO SCH (21:08)
[2019-01-16 01:02] VITALS: BP 105/68
[2019-01-16] MEDS: OXYcodone IR 5MG TABLET PO PRN ×5 (03:30→23:07)
[2019-01-16] MEDS: CEFAZOLIN PMX 2GM/100ML 100 ML IVPB SCH ×2 (04:57→13:19)
[2019-01-16 05:17] LABS: HCT (SEDRATE) 23.8 % (34.6-47.8)
[2019-01-16 05:20] LABS: BASOPHILS # (AUTO) 0.11 x10^3/uL (0-0.1); BASOPHILS % (AUTO) 2 % (0-1); EOSINOPHILS # (AUTO) 0.12 x10^3/uL (0-0.4); EOSINOPHILS % (AUTO) 2 % (1-7); LYMPHOCYTES # (AUTO) 1.91 x10^3/uL (1-3.4); LYMPHOCYTES % (AUTO) 28 % (22-44); MD NO; MEAN CORPUSCULAR HEMOGLOBIN 32.4 pg (27.0-34.8); MEAN CORPUSCULAR HGB CONC 33.3 g/dL (32.4-35.8); MEAN CORPUSCULAR VOLUME 97.3 fL (80-100); MEAN PLATELET VOLUME 7.8 fL (7.4-10.4); MONOCYTES % (AUTO) 6 % (2-9); NEUTROPHILS % (AUTO) 63 % (42-75); PLATELET COUNT 572 x10^3/uL (130-400); RED BLOOD COUNT 2.43 x10^6/uL (3.82-5.3); RED CELL DISTRIBUTION WIDTH 15.4 % (9.6-15.2)
[2019-01-16 05:26] LABS: ALANINE AMINOTRANSFERASE 16 U/L (12-78); ALBUMIN 2.5 g/dL (3.4-5.0); ANION GAP 6 mmol/L (5-15); CALCIUM 8.9 mg/dL (8.5-10.1); CHLORIDE 107 mmol/L (98-107)
[2019-01-16 05:28] LABS: ALKALINE PHOSPHATASE 134 U/L (45-117); C-REACTIVE PROTEIN, QUANT 0.41 mg/dL (0.02-0.49); CREATININE 0.72 mg/dL (0.55-1.02); TOTAL PROTEIN 8.4 g/dL (6.4-8.2)
[2019-01-16 06:36] LABS: SEDIMENTATION RATE > 120 mm/hr (0-20)
[2019-01-16 07:15] VITALS: BP 96/61
[2019-01-16] MEDS: INSULIN LISPRO 100 UNITS/ML, PEN SQ-INSULIN SCH ×4 (08:22→19:57)
[2019-01-16] MEDS: ASPIRIN 81 MG TABLET CHEW PO SCH (08:24)
[2019-01-16] MEDS: CLOPIDOGREL 75 MG TABLET PO SCH (08:24)
[2019-01-16] MEDS: SODIUM CHLORIDE FLUSH 10ML SYR IVF SCH ×2 (08:25→19:57)
[2019-01-16 11:57] LABS: ALBUMIN 2.5 g/dL (3.4-5.0); BILIRUBIN, DIRECT 0.3 mg/dL (0.1-0.2)
[2019-01-16 11:59] LABS: BILIRUBIN,INDIRECT 0.4 mg/dL (0.0-2.0); BILIRUBIN,TOTAL 0.7 mg/dL (0.2-1.0); TOTAL PROTEIN 8.7 g/dL (6.4-8.2)
[2019-01-16 12:40] VITALS: BP 97/64
[2019-01-16] MEDS: ENOXAPARIN 40 MG/0.4 ML SQ SCH (16:50)
[2019-01-16 19:41] VITALS: BP 93/61
[2019-01-16] MEDS: ATORVASTATIN 40 MG TABLET PO SCH (19:57)
[2019-01-16] MEDS: CEFAZOLIN 2,000 MG in SODIUM CHLORIDE 0.9% 50 ML IVPB SCH (19:57)
[2019-01-17 01:44] VITALS: BP 103/64
[2019-01-17] MEDS: OXYcodone IR 5MG TABLET PO PRN ×5 (03:11→20:39)
[2019-01-17] MEDS: CEFAZOLIN 2,000 MG in SODIUM CHLORIDE 0.9% 50 ML IVPB SCH ×3 (04:52→16:41)
[2019-01-17] MEDS: INSULIN LISPRO 100 UNITS/ML, PEN SQ-INSULIN SCH ×4 (07:00→20:12)
[2019-01-17 07:35] VITALS: BP 97/62
[2019-01-17] MEDS: CLOPIDOGREL 75 MG TABLET PO SCH (07:56)
[2019-01-17] MEDS: ASPIRIN 81 MG TABLET CHEW PO SCH (07:56)
[2019-01-17] MEDS: SODIUM CHLORIDE FLUSH 10ML SYR IVF SCH ×2 (07:57→20:39)
[2019-01-17 10:57] LABS: BASOPHILS # (AUTO) 0.07 x10^3/uL (0-0.1); BASOPHILS % (AUTO) 1 % (0-1); EOSINOPHILS # (AUTO) 0.11 x10^3/uL (0-0.4); EOSINOPHILS % (AUTO) 2 % (1-7); LYMPHOCYTES # (AUTO) 1.96 x10^3/uL (1-3.4); LYMPHOCYTES % (AUTO) 32 % (22-44); MD NO; MEAN CORPUSCULAR HEMOGLOBIN 31.7 pg (27.0-34.8); MEAN CORPUSCULAR HGB CONC 32.6 g/dL (32.4-35.8); MEAN CORPUSCULAR VOLUME 97.3 fL (80-100); MEAN PLATELET VOLUME 7.8 fL (7.4-10.4); MONOCYTES % (AUTO) 6 % (2-9); NEUTROPHILS # (AUTO) 3.68 x10^3/uL (1.8-6.8); NEUTROPHILS % (AUTO) 59 % (42-75); PLATELET COUNT 560 x10^3/uL (130-400); RED BLOOD COUNT 2.67 x10^6/uL (3.82-5.3); RED CELL DISTRIBUTION WIDTH 15.8 % (9.6-15.2)
[2019-01-17 11:09] LABS: ALANINE AMINOTRANSFERASE 20 U/L (12-78); ALBUMIN 2.6 g/dL (3.4-5.0); ANION GAP 9 mmol/L (5-15); CHLORIDE 106 mmol/L (98-107); CREATININE 0.82 mg/dL (0.55-1.02)
[2019-01-17 11:11] LABS: ALKALINE PHOSPHATASE 139 U/L (45-117); BILIRUBIN,TOTAL 0.7 mg/dL (0.2-1.0); TOTAL PROTEIN 8.5 g/dL (6.4-8.2)
[2019-01-17 12:39] VITALS: BP 97/65
[2019-01-17] MEDS: ENOXAPARIN 40 MG/0.4 ML SQ SCH (16:40)
[2019-01-17 19:27] VITALS: BP 106/67
[2019-01-17] MEDS: ATORVASTATIN 40 MG TABLET PO SCH (20:38)
[2019-01-18] MEDS: OXYcodone IR 5MG TABLET PO PRN ×5 (00:42→20:48)
[2019-01-18] MEDS: CEFAZOLIN 2,000 MG in SODIUM CHLORIDE 0.9% 50 ML IVPB SCH ×3 (00:42→19:54)
[2019-01-18 01:49] VITALS: BP 95/63
[2019-01-18 05:26] LABS: BASOPHILS # (AUTO) 0.11 x10^3/uL (0-0.1); BASOPHILS % (AUTO) 2 % (0-1); EOSINOPHILS # (AUTO) 0.14 x10^3/uL (0-0.4); EOSINOPHILS % (AUTO) 2 % (1-7); LYMPHOCYTES # (AUTO) 2.42 x10^3/uL (1-3.4); LYMPHOCYTES % (AUTO) 38 % (22-44); MD NO; MEAN CORPUSCULAR HEMOGLOBIN 33.2 pg (27.0-34.8); MEAN CORPUSCULAR HGB CONC 33.8 g/dL (32.4-35.8); MEAN CORPUSCULAR VOLUME 98.2 fL (80-100); MEAN PLATELET VOLUME 7.9 fL (7.4-10.4); MONOCYTES # (AUTO) 0.41 x10^3/uL (0.2-0.8); MONOCYTES % (AUTO) 6 % (2-9); NEUTROPHILS # (AUTO) 3.34 x10^3/uL (1.8-6.8); NEUTROPHILS % (AUTO) 52 % (42-75); PLATELET COUNT 538 x10^3/uL (130-400); RED BLOOD COUNT 2.51 x10^6/uL (3.82-5.3); RED CELL DISTRIBUTION WIDTH 15.4 % (9.6-15.2)
[2019-01-18 05:39] LABS: ALBUMIN 2.6 g/dL (3.4-5.0); ANION GAP 6 mmol/L (5-15); CALCIUM 8.9 mg/dL (8.5-10.1); CHLORIDE 108 mmol/L (98-107)
[2019-01-18 05:44] LABS: ALANINE AMINOTRANSFERASE 15 U/L (12-78); ALKALINE PHOSPHATASE 134 U/L (45-117); BILIRUBIN,TOTAL 0.7 mg/dL (0.2-1.0); CREATININE 0.82 mg/dL (0.55-1.02)
[2019-01-18 06:59] VITALS: BP 101/58
[2019-01-18] MEDS: INSULIN LISPRO 100 UNITS/ML, PEN SQ-INSULIN SCH ×4 (07:00→20:35)
[2019-01-18] MEDS: SODIUM CHLORIDE FLUSH 10ML SYR IVF SCH ×2 (09:00→19:54)
[2019-01-18] MEDS: ASPIRIN 81 MG TABLET CHEW PO SCH (10:50)
[2019-01-18] MEDS: CLOPIDOGREL 75 MG TABLET PO SCH (10:50)
[2019-01-18 12:00] VITALS: BP 105/72
[2019-01-18] MEDS ORDERED: POTASSIUM CHLORIDE 20 MEQ TAB.ER.PRT PO ONE (16:30)
[2019-01-18] MEDS ORDERED: POTASSIUM CHLORIDE 40 MEQ in SODIUM CHLORIDE 0.9% 500 ML IV ONE (16:30)
[2019-01-18] MEDS: ENOXAPARIN 40 MG/0.4 ML SQ SCH (16:44)
[2019-01-18 18:51] VITALS: BP 95/64
[2019-01-18] MEDS: ATORVASTATIN 40 MG TABLET PO SCH (20:48)
[2019-01-19] MEDS: OXYcodone IR 5MG TABLET PO PRN ×5 (01:08→20:52)
[2019-01-19 01:20] VITALS: BP 97/60
[2019-01-19] MEDS: CEFAZOLIN 2,000 MG in SODIUM CHLORIDE 0.9% 50 ML IVPB SCH ×3 (04:15→20:52)
[2019-01-19 05:57] LABS: BASOPHILS % (AUTO) 2 % (0-1); EOSINOPHILS # (AUTO) 0.11 x10^3/uL (0-0.4); EOSINOPHILS % (AUTO) 2 % (1-7); LYMPHOCYTES # (AUTO) 2.01 x10^3/uL (1-3.4); LYMPHOCYTES % (AUTO) 36 % (22-44); MD NO; MEAN CORPUSCULAR HEMOGLOBIN 33.1 pg (27.0-34.8); MEAN CORPUSCULAR HGB CONC 33.6 g/dL (32.4-35.8); MEAN CORPUSCULAR VOLUME 98.3 fL (80-100); MONOCYTES % (AUTO) 6 % (2-9); NEUTROPHILS # (AUTO) 3.03 x10^3/uL (1.8-6.8); NEUTROPHILS % (AUTO) 55 % (42-75); PLATELET COUNT 470 x10^3/uL (130-400); RED BLOOD COUNT 2.49 x10^6/uL (3.82-5.3); RED CELL DISTRIBUTION WIDTH 15.4 % (9.6-15.2)
[2019-01-19 06:05] LABS: ALBUMIN 2.7 g/dL (3.4-5.0); ANION GAP 8 mmol/L (5-15); CALCIUM 8.9 mg/dL (8.5-10.1); CHLORIDE 106 mmol/L (98-107)
[2019-01-19 06:09] LABS: ALANINE AMINOTRANSFERASE 14 U/L (12-78); ALKALINE PHOSPHATASE 124 U/L (45-117); BILIRUBIN,TOTAL 0.8 mg/dL (0.2-1.0); CREATININE 0.94 mg/dL (0.55-1.02)
[2019-01-19] MEDS: INSULIN LISPRO 100 UNITS/ML, PEN SQ-INSULIN SCH ×4 (07:00→20:32)
[2019-01-19 07:18] VITALS: BP 99/62
[2019-01-19] MEDS: SODIUM CHLORIDE FLUSH 10ML SYR IVF SCH ×2 (10:28→20:52)
[2019-01-19] MEDS: CLOPIDOGREL 75 MG TABLET PO SCH (10:28)
[2019-01-19] MEDS: ASPIRIN 81 MG TABLET CHEW PO SCH (10:28)
[2019-01-19 13:50] VITALS: BP 98/65
[2019-01-19] MEDS: ENOXAPARIN 40 MG/0.4 ML SQ SCH (16:30)
[2019-01-19 19:15] VITALS: BP 101/68
[2019-01-19] MEDS: ATORVASTATIN 40 MG TABLET PO SCH (20:52)
[2019-01-20] MEDS: OXYcodone IR 5MG TABLET PO PRN ×5 (01:04→20:59)
[2019-01-20 01:13] VITALS: BP 107/72
[2019-01-20] MEDS: CEFAZOLIN 2,000 MG in SODIUM CHLORIDE 0.9% 50 ML IVPB SCH ×3 (05:09→20:59)
[2019-01-20 06:09] LABS: BASOPHILS # (AUTO) 0.05 x10^3/uL (0-0.1); BASOPHILS % (AUTO) 1 % (0-1); EOSINOPHILS # (AUTO) 0.15 x10^3/uL (0-0.4); EOSINOPHILS % (AUTO) 2 % (1-7); LYMPHOCYTES # (AUTO) 2.45 x10^3/uL (1-3.4); LYMPHOCYTES % (AUTO) 40 % (22-44); MD NO; MEAN CORPUSCULAR HEMOGLOBIN 32.9 pg (27.0-34.8); MEAN CORPUSCULAR HGB CONC 33.1 g/dL (32.4-35.8); MEAN CORPUSCULAR VOLUME 99.1 fL (80-100); MEAN PLATELET VOLUME 8.1 fL (7.4-10.4); MONOCYTES # (AUTO) 0.39 x10^3/uL (0.2-0.8); MONOCYTES % (AUTO) 6 % (2-9); NEUTROPHILS # (AUTO) 3.13 x10^3/uL (1.8-6.8); NEUTROPHILS % (AUTO) 51 % (42-75); PLATELET COUNT 460 x10^3/uL (130-400); RED BLOOD COUNT 2.54 x10^6/uL (3.82-5.3)
[2019-01-20 06:19] LABS: CHLORIDE 108 mmol/L (98-107)
[2019-01-20 06:25] LABS: ALANINE AMINOTRANSFERASE 13 U/L (12-78); ALBUMIN 2.7 g/dL (3.4-5.0); ALKALINE PHOSPHATASE 123 U/L (45-117); ANION GAP 7 mmol/L (5-15); BILIRUBIN,TOTAL 0.8 mg/dL (0.2-1.0); CALCIUM 8.9 mg/dL (8.5-10.1); CREATININE 0.78 mg/dL (0.55-1.02); TOTAL PROTEIN 8.1 g/dL (6.4-8.2)
[2019-01-20] MEDS: INSULIN LISPRO 100 UNITS/ML, PEN SQ-INSULIN SCH ×4 (07:00→21:00)
[2019-01-20 07:02] VITALS: BP 103/66
[2019-01-20] MEDS: CLOPIDOGREL 75 MG TABLET PO SCH (08:56)
[2019-01-20] MEDS: SODIUM CHLORIDE FLUSH 10ML SYR IVF SCH ×2 (08:56→20:59)
[2019-01-20] MEDS: ASPIRIN 81 MG TABLET CHEW PO SCH (08:56)
[2019-01-20 13:20] VITALS: BP 93/59
[2019-01-20] MEDS: ENOXAPARIN 40 MG/0.4 ML SQ SCH (16:46)
[2019-01-20 19:05] VITALS: BP 89/63
[2019-01-20] MEDS: ATORVASTATIN 40 MG TABLET PO SCH (20:59)
[2019-01-21 00:45] VITALS: BP 103/64
[2019-01-21] MEDS: OXYcodone IR 5MG TABLET PO PRN ×5 (02:12→21:31)
[2019-01-21] MEDS: CEFAZOLIN 2,000 MG in SODIUM CHLORIDE 0.9% 50 ML IVPB SCH ×3 (05:01→21:28)
[2019-01-21] MEDS: INSULIN LISPRO 100 UNITS/ML, PEN SQ-INSULIN SCH ×4 (07:00→21:39)
[2019-01-21 07:35] VITALS: BP 95/61
[2019-01-21] MEDS: CLOPIDOGREL 75 MG TABLET PO SCH (08:29)
[2019-01-21] MEDS: SODIUM CHLORIDE FLUSH 10ML SYR IVF SCH ×2 (08:29→21:28)
[2019-01-21] MEDS: ASPIRIN 81 MG TABLET CHEW PO SCH (08:29)
[2019-01-21 14:15] VITALS: BP 100/64
[2019-01-21] MEDS: ENOXAPARIN 40 MG/0.4 ML SQ SCH (16:12)
[2019-01-21 19:03] VITALS: BP 96/64
[2019-01-21] MEDS: ATORVASTATIN 40 MG TABLET PO SCH (21:28)
[2019-01-22 00:46] VITALS: BP 97/65
[2019-01-22] MEDS: OXYcodone IR 5MG TABLET PO PRN ×5 (01:03→21:20)
[2019-01-22] MEDS: CEFAZOLIN 2,000 MG in SODIUM CHLORIDE 0.9% 50 ML IVPB SCH ×3 (04:48→21:20)
[2019-01-22] MEDS: INSULIN LISPRO 100 UNITS/ML, PEN SQ-INSULIN SCH ×4 (07:00→21:20)
[2019-01-22 07:45] VITALS: BP 96/62
[2019-01-22 07:51] VITALS: BP 146/76
[2019-01-22] MEDS: SODIUM CHLORIDE FLUSH 10ML SYR IVF SCH ×2 (09:00→21:00)
[2019-01-22] MEDS: CLOPIDOGREL 75 MG TABLET PO SCH (09:01)
[2019-01-22] MEDS: ASPIRIN 81 MG TABLET CHEW PO SCH (09:01)
[2019-01-22] MEDS: ENOXAPARIN 40 MG/0.4 ML SQ SCH (15:59)
[2019-01-22 16:02] VITALS: BP 90/60
[2019-01-22 19:02] VITALS: BP 94/61
[2019-01-22] MEDS: ATORVASTATIN 40 MG TABLET PO SCH (21:20)
[2019-01-23] MEDS: OXYcodone IR 5MG TABLET PO PRN ×6 (01:13→21:25)
[2019-01-23 01:27] VITALS: BP 115/68
[2019-01-23] MEDS: ACETAMINOPHEN 325 MG TABLET PO PRN (03:29)
[2019-01-23] MEDS: CEFAZOLIN 2,000 MG in SODIUM CHLORIDE 0.9% 50 ML IVPB SCH ×3 (05:14→21:25)
[2019-01-23 05:35] LABS: HCT (SEDRATE) 24.8 % (34.6-47.8)
[2019-01-23 05:38] LABS: BASOPHILS # (AUTO) 0.07 x10^3/uL (0-0.1); BASOPHILS % (AUTO) 1 % (0-1); EOSINOPHILS # (AUTO) 0.18 x10^3/uL (0-0.4); EOSINOPHILS % (AUTO) 4 % (1-7); LYMPHOCYTES # (AUTO) 1.95 x10^3/uL (1-3.4); LYMPHOCYTES % (AUTO) 38 % (22-44); MD NO; MEAN CORPUSCULAR HEMOGLOBIN 32.5 pg (27.0-34.8); MEAN CORPUSCULAR HGB CONC 32.6 g/dL (32.4-35.8); MEAN CORPUSCULAR VOLUME 99.6 fL (80-100); MEAN PLATELET VOLUME 8.3 fL (7.4-10.4); MONOCYTES # (AUTO) 0.32 x10^3/uL (0.2-0.8); MONOCYTES % (AUTO) 6 % (2-9); NEUTROPHILS # (AUTO) 2.55 x10^3/uL (1.8-6.8); NEUTROPHILS % (AUTO) 50 % (42-75); PLATELET COUNT 359 x10^3/uL (130-400); RED BLOOD COUNT 2.53 x10^6/uL (3.82-5.3); RED CELL DISTRIBUTION WIDTH 16.2 % (9.6-15.2)
[2019-01-23 05:45] LABS: ALBUMIN 2.8 g/dL (3.4-5.0); ANION GAP 8 mmol/L (5-15); CALCIUM 8.8 mg/dL (8.5-10.1); CHLORIDE 108 mmol/L (98-107)
[2019-01-23 05:51] LABS: ALANINE AMINOTRANSFERASE 14 U/L (12-78); ALKALINE PHOSPHATASE 125 U/L (45-117); BILIRUBIN,TOTAL 0.6 mg/dL (0.2-1.0); C-REACTIVE PROTEIN, QUANT 0.14 mg/dL (0.02-0.49); CREATININE 0.74 mg/dL (0.55-1.02); TOTAL PROTEIN 7.8 g/dL (6.4-8.2)
[2019-01-23 06:53] LABS: SEDIMENTATION RATE > 120 mm/hr (0-20)
[2019-01-23] MEDS: INSULIN LISPRO 100 UNITS/ML, PEN SQ-INSULIN SCH ×4 (07:00→21:00)
[2019-01-23 07:24] VITALS: BP 94/60
[2019-01-23] MEDS: SODIUM CHLORIDE FLUSH 10ML SYR IVF SCH ×2 (09:00→21:00)
[2019-01-23] MEDS: ASPIRIN 81 MG TABLET CHEW PO SCH (09:18)
[2019-01-23] MEDS: CLOPIDOGREL 75 MG TABLET PO SCH (09:18)
[2019-01-23 16:08] VITALS: BP 104/68
[2019-01-23] MEDS: ENOXAPARIN 40 MG/0.4 ML SQ SCH (16:45)
[2019-01-23 19:13] VITALS: BP 101/60
[2019-01-23] MEDS: ATORVASTATIN 40 MG TABLET PO SCH (21:24)
[2019-01-24] MEDS: ACETAMINOPHEN 325 MG TABLET PO PRN ×2 (00:34→20:54)
[2019-01-24 00:36] VITALS: BP 92/60
[2019-01-24] MEDS: OXYcodone IR 5MG TABLET PO PRN ×5 (02:31→21:59)
[2019-01-24] MEDS: CEFAZOLIN 2,000 MG in SODIUM CHLORIDE 0.9% 50 ML IVPB SCH ×3 (05:07→20:47)
[2019-01-24] MEDS: INSULIN LISPRO 100 UNITS/ML, PEN SQ-INSULIN SCH ×4 (07:00→20:43)
[2019-01-24 07:17] VITALS: BP 99/63
[2019-01-24] MEDS: ASPIRIN 81 MG TABLET CHEW PO SCH (08:27)
[2019-01-24] MEDS: CLOPIDOGREL 75 MG TABLET PO SCH (08:27)
[2019-01-24] MEDS: SODIUM CHLORIDE FLUSH 10ML SYR IVF SCH ×2 (08:28→20:47)
[2019-01-24 12:32] VITALS: BP 106/69
[2019-01-24] MEDS: ENOXAPARIN 40 MG/0.4 ML SQ SCH (17:27)
[2019-01-24 19:10] VITALS: BP 107/75
[2019-01-24] MEDS: ATORVASTATIN 40 MG TABLET PO SCH (20:47)
[2019-01-25 01:06] VITALS: BP 92/57
[2019-01-25] MEDS: CEFAZOLIN 2,000 MG in SODIUM CHLORIDE 0.9% 50 ML IVPB SCH ×3 (05:24→20:38)
[2019-01-25] MEDS: OXYcodone IR 5MG TABLET PO PRN ×4 (05:24→20:08)
[2019-01-25] MEDS: INSULIN LISPRO 100 UNITS/ML, PEN SQ-INSULIN SCH ×4 (07:00→20:15)
[2019-01-25 07:16] VITALS: BP 98/65
[2019-01-25] MEDS: SODIUM CHLORIDE FLUSH 10ML SYR IVF SCH ×2 (09:00→20:10)
[2019-01-25] MEDS: CLOPIDOGREL 75 MG TABLET PO SCH (09:30)
[2019-01-25] MEDS: ASPIRIN 81 MG TABLET CHEW PO SCH (09:30)
[2019-01-25 13:30] VITALS: BP 95/62
[2019-01-25] MEDS: ENOXAPARIN 40 MG/0.4 ML SQ SCH (17:32)
[2019-01-25 19:38] VITALS: BP 91/61
[2019-01-25] MEDS: ATORVASTATIN 40 MG TABLET PO SCH (20:08)
[2019-01-26] MEDS: OXYcodone IR 5MG TABLET PO PRN ×4 (00:08→19:33)
[2019-01-26 00:49] VITALS: BP 98/61
[2019-01-26] MEDS: ACETAMINOPHEN 325 MG TABLET PO PRN (03:01)
[2019-01-26] MEDS: CEFAZOLIN 2,000 MG in SODIUM CHLORIDE 0.9% 50 ML IVPB SCH ×3 (04:29→20:44)
[2019-01-26] MEDS: INSULIN LISPRO 100 UNITS/ML, PEN SQ-INSULIN SCH ×4 (07:00→20:45)
[2019-01-26] MEDS: SODIUM CHLORIDE FLUSH 10ML SYR IVF SCH ×2 (07:29→20:44)
[2019-01-26 07:54] VITALS: BP 103/68
[2019-01-26] MEDS ORDERED: HYDROmorphone 2 MG/ML, 1ML ONE (08:12)
[2019-01-26] MEDS: CLOPIDOGREL 75 MG TABLET PO SCH (08:15)
[2019-01-26] MEDS: ASPIRIN 81 MG TABLET CHEW PO SCH (08:15)
[2019-01-26] MEDS ORDERED: HYDROmorphone 2 MG/ML, 1ML IV ONE (08:30)
[2019-01-26] MEDS ORDERED: LORazepam 2 MG/ML, 1ML IVPush ONE (08:30)
[2019-01-26 13:13] VITALS: BP 94/60
[2019-01-26] MEDS: morphine SULFATE 10 MG/ML, 1ML IVPush PRN ×2 (15:55→22:08)
[2019-01-26] MEDS: ENOXAPARIN 40 MG/0.4 ML SQ SCH (17:20)
[2019-01-26 20:31] VITALS: BP 96/62
[2019-01-26] MEDS: ATORVASTATIN 40 MG TABLET PO SCH (20:44)
[2019-01-27 02:07] VITALS: BP 81/52
[2019-01-27] MEDS: OXYcodone IR 5MG TABLET PO PRN ×5 (02:10→19:35)
[2019-01-27 03:42] VITALS: BP 95/60
[2019-01-27] MEDS: ACETAMINOPHEN 325 MG TABLET PO PRN ×2 (04:20→13:12)
[2019-01-27] MEDS: CEFAZOLIN 2,000 MG in SODIUM CHLORIDE 0.9% 50 ML IVPB SCH ×3 (05:13→20:07)
[2019-01-27 06:13] VITALS: BP 98/63
[2019-01-27] MEDS: INSULIN LISPRO 100 UNITS/ML, PEN SQ-INSULIN SCH ×4 (07:00→20:07)
[2019-01-27] MEDS: SODIUM CHLORIDE FLUSH 10ML SYR IVF SCH ×2 (07:19→20:07)
[2019-01-27] MEDS: CLOPIDOGREL 75 MG TABLET PO SCH (07:27)
[2019-01-27] MEDS: ASPIRIN 81 MG TABLET CHEW PO SCH (07:27)
[2019-01-27 08:09] VITALS: BP 116/80
[2019-01-27 12:45] VITALS: BP 100/63
[2019-01-27] MEDS: ENOXAPARIN 40 MG/0.4 ML SQ SCH (16:53)
[2019-01-27 20:02] VITALS: BP 97/65
[2019-01-27] MEDS: ATORVASTATIN 40 MG TABLET PO SCH (20:07)
[2019-01-28 01:37] VITALS: BP 89/55
[2019-01-28] MEDS: ACETAMINOPHEN 325 MG TABLET PO PRN ×2 (04:48→22:53)
[2019-01-28] MEDS: CEFAZOLIN 2,000 MG in SODIUM CHLORIDE 0.9% 50 ML IVPB SCH ×3 (04:49→21:27)
[2019-01-28] MEDS: OXYcodone IR 5MG TABLET PO PRN ×4 (05:27→21:27)
[2019-01-28 05:35] LABS: CREATININE 0.81 mg/dL (0.55-1.02)
[2019-01-28] MEDS: INSULIN LISPRO 100 UNITS/ML, PEN SQ-INSULIN SCH ×4 (07:00→21:00)
[2019-01-28] MEDS: SODIUM CHLORIDE FLUSH 10ML SYR IVF SCH ×2 (07:16→21:00)
[2019-01-28] MEDS: CLOPIDOGREL 75 MG TABLET PO SCH (07:36)
[2019-01-28] MEDS: ASPIRIN 81 MG TABLET CHEW PO SCH (07:36)
[2019-01-28 07:54] VITALS: BP 161/69
[2019-01-28 08:58] VITALS: BP 82/52
[2019-01-28 14:00] VITALS: BP 93/57
[2019-01-28] MEDS: ENOXAPARIN 40 MG/0.4 ML SQ SCH (16:53)
[2019-01-28 20:07] VITALS: BP 100/68
[2019-01-28] MEDS: ATORVASTATIN 40 MG TABLET PO SCH (21:27)
[2019-01-29 00:26] VITALS: BP 93/60
[2019-01-29] MEDS: ACETAMINOPHEN 325 MG TABLET PO PRN ×2 (04:22→22:59)
[2019-01-29] MEDS: CEFAZOLIN 2,000 MG in SODIUM CHLORIDE 0.9% 50 ML IVPB SCH ×3 (04:47→21:09)
[2019-01-29] MEDS: OXYcodone IR 5MG TABLET PO PRN ×4 (06:02→19:21)
[2019-01-29] MEDS: INSULIN LISPRO 100 UNITS/ML, PEN SQ-INSULIN SCH ×4 (07:00→21:09)
[2019-01-29] MEDS: SODIUM CHLORIDE FLUSH 10ML SYR IVF SCH ×2 (07:32→21:09)
[2019-01-29] MEDS: ASPIRIN 81 MG TABLET CHEW PO SCH (07:59)
[2019-01-29] MEDS: CLOPIDOGREL 75 MG TABLET PO SCH (07:59)
[2019-01-29 08:05] VITALS: BP 89/54
[2019-01-29 08:10] LABS: BASOPHILS # (AUTO) 0.02 x10^3/uL (0-0.1); BASOPHILS % (AUTO) 1 % (0-1); EOSINOPHILS # (AUTO) 0.18 x10^3/uL (0-0.4); EOSINOPHILS % (AUTO) 4 % (1-7); LYMPHOCYTES # (AUTO) 1.26 x10^3/uL (1-3.4); LYMPHOCYTES % (AUTO) 31 % (22-44); MD NO; MEAN CORPUSCULAR HEMOGLOBIN 31.3 pg (27.0-34.8); MEAN CORPUSCULAR HGB CONC 32.2 g/dL (32.4-35.8); MEAN CORPUSCULAR VOLUME 97.2 fL (80-100); MEAN PLATELET VOLUME 8.3 fL (7.4-10.4); MONOCYTES # (AUTO) 0.24 x10^3/uL (0.2-0.8); MONOCYTES % (AUTO) 6 % (2-9); NEUTROPHILS % (AUTO) 59 % (42-75); PLATELET COUNT 310 x10^3/uL (130-400); RED BLOOD COUNT 2.88 x10^6/uL (3.82-5.3); RED CELL DISTRIBUTION WIDTH 15.5 % (9.6-15.2)
[2019-01-29 08:19] LABS: ALANINE AMINOTRANSFERASE 10 U/L (12-78); ANION GAP 8 mmol/L (5-15); CALCIUM 9.1 mg/dL (8.5-10.1); CHLORIDE 112 mmol/L (98-107)
[2019-01-29 08:22] LABS: ALKALINE PHOSPHATASE 129 U/L (45-117); BILIRUBIN,TOTAL 0.5 mg/dL (0.2-1.0); CREATINE KINASE, TOTAL 57 U/L (26-192); CREATININE 0.75 mg/dL (0.55-1.02); TOTAL PROTEIN 7.6 g/dL (6.4-8.2)
[2019-01-29 13:51] VITALS: BP 87/52
[2019-01-29] MEDS: ENOXAPARIN 40 MG/0.4 ML SQ SCH (17:07)
[2019-01-29 18:57] VITALS: BP 90/64
[2019-01-29] MEDS: ATORVASTATIN 40 MG TABLET PO SCH (21:09)
[2019-01-30] MEDS: OXYcodone IR 5MG TABLET PO PRN ×5 (01:20→20:40)
[2019-01-30 01:27] VITALS: BP 98/62
[2019-01-30] MEDS: CEFAZOLIN 2,000 MG in SODIUM CHLORIDE 0.9% 50 ML IVPB SCH ×3 (05:27→20:37)
[2019-01-30] MEDS: INSULIN LISPRO 100 UNITS/ML, PEN SQ-INSULIN SCH ×4 (07:00→20:37)
[2019-01-30] MEDS: ASPIRIN 81 MG TABLET CHEW PO SCH (08:19)
[2019-01-30] MEDS: SODIUM CHLORIDE FLUSH 10ML SYR IVF SCH ×2 (08:19→20:41)
[2019-01-30] MEDS: ACETAMINOPHEN 325 MG TABLET PO PRN (08:20)
[2019-01-30] MEDS: CLOPIDOGREL 75 MG TABLET PO SCH (08:20)
[2019-01-30 08:58] VITALS: BP 89/59
[2019-01-30 09:16] VITALS: BP 94/60
[2019-01-30 11:52] VITALS: BP 107/70
[2019-01-30 13:43] VITALS: BP 95/63
[2019-01-30] MEDS: ENOXAPARIN 40 MG/0.4 ML SQ SCH (17:51)
[2019-01-30 18:33] VITALS: BP 116/66
[2019-01-30] MEDS: ATORVASTATIN 40 MG TABLET PO SCH (20:36)
[2019-01-31] MEDS: ACETAMINOPHEN 325 MG TABLET PO PRN ×3 (00:07→23:47)
[2019-01-31 01:45] VITALS: BP 102/57
[2019-01-31] MEDS: OXYcodone IR 5MG TABLET PO PRN ×5 (02:03→22:32)
[2019-01-31] MEDS: CEFAZOLIN 2,000 MG in SODIUM CHLORIDE 0.9% 50 ML IVPB SCH ×3 (05:20→20:33)
[2019-01-31] MEDS: INSULIN LISPRO 100 UNITS/ML, PEN SQ-INSULIN SCH ×4 (07:00→20:34)
[2019-01-31 08:03] VITALS: BP 99/64
[2019-01-31] MEDS: ASPIRIN 81 MG TABLET CHEW PO SCH (08:04)
[2019-01-31] MEDS: CLOPIDOGREL 75 MG TABLET PO SCH (08:04)
[2019-01-31] MEDS: SODIUM CHLORIDE FLUSH 10ML SYR IVF SCH ×2 (08:05→20:34)
[2019-01-31 15:37] VITALS: BP 99/65
[2019-01-31] MEDS: ENOXAPARIN 40 MG/0.4 ML SQ SCH (16:38)
[2019-01-31 19:40] VITALS: BP 95/60
[2019-01-31] MEDS: ATORVASTATIN 40 MG TABLET PO SCH (20:34)
[2019-02-01 02:21] VITALS: BP 102/66
[2019-02-01] MEDS: CEFAZOLIN 2,000 MG in SODIUM CHLORIDE 0.9% 50 ML IVPB SCH (05:09)
[2019-02-01] MEDS: OXYcodone IR 5MG TABLET PO PRN ×2 (05:17→10:32)
[2019-02-01] MEDS: ACETAMINOPHEN 325 MG TABLET PO PRN (06:21)
[2019-02-01 06:53] VITALS: BP 107/71
[2019-02-01] MEDS: INSULIN LISPRO 100 UNITS/ML, PEN SQ-INSULIN SCH ×2 (07:00→11:56)
[2019-02-01] MEDS: SODIUM CHLORIDE FLUSH 10ML SYR IVF SCH (08:33)
[2019-02-01] MEDS: ASPIRIN 81 MG TABLET CHEW PO SCH (08:33)
[2019-02-01] MEDS: CLOPIDOGREL 75 MG TABLET PO SCH (08:33)
[2019-02-01] MEDS ORDERED: CEFAZOLIN 2,000 MG in SODIUM CHLORIDE 0.9% 50 ML IVPB SCH (13:00)
[2019-02-01 13:25] VITALS: BP 110/68
[2019-02-01] MEDS ORDERED: ASPI-515 PO (13:58)
[2019-02-01] MEDS ORDERED: INSU100I11 SQ-INSULIN (13:58)
[2019-02-01] MEDS ORDERED: CLOP75TA PO (13:58)
[2019-02-01] MEDS ORDERED: ATOR40TA78 PO (13:58)
[2019-02-01] MEDS ORDERED: OXYC5TAB3 PO (13:58)
[2019-02-01] MEDS ORDERED: ENOXAPARIN 40 MG/0.4 ML SQ SCH (15:30)
== END 2019-02-01 16:00 | disposition home or self-care (01) | DRG 853 ==
LOC: ED 13:23 → EDIP 13:35 → 3NE 13:44 → DCLOUNGE 02-01 15:55
PROVIDERS: ADMIT Hospitalist; ATTEND Hospitalist
PROC: 04CK3ZZ Extirpation of Matter from Right Femoral Artery, Percutaneous Approach (ICD-10-PCS; principal; 2019-01-03)
PROC: 04CM3ZZ Extirpation of Matter from Right Popliteal Artery, Percutaneous Approach (ICD-10-PCS; 2019-01-03)
PROC: 047M3Z1 Dilation of Right Popliteal Artery using Drug-Coated Balloon, Percutaneous Approach (ICD-10-PCS; 2019-01-03)
PROC: 047K3Z1 Dilation of Right Femoral Artery using Drug-Coated Balloon, Percutaneous Approach (ICD-10-PCS; 2019-01-03)
PROC: B44GZZZ Ultrasonography of Left Lower Extremity Arteries (ICD-10-PCS; 2019-01-03)
PROC: B41F1ZZ Fluoroscopy of Right Lower Extremity Arteries using Low Osmolar Contrast (ICD-10-PCS; 2019-01-03)
PROC: 0Y6H0Z1 Detachment at Right Lower Leg, High, Open Approach (ICD-10-PCS; 2019-01-05)
PROC: 02HV33Z Insertion of Infusion Device into Superior Vena Cava, Percutaneous Approach (ICD-10-PCS; 2019-01-08)
PROC: B5181ZA Fluoroscopy of Superior Vena Cava using Low Osmolar Contrast, Guidance (ICD-10-PCS; 2019-01-08)
PROC: B548ZZA Ultrasonography of Superior Vena Cava, Guidance (ICD-10-PCS; 2019-01-08)
DX: A41.01 Sepsis due to Methicillin susceptible Staphylococcus aureus (principal); N17.0 Acute kidney failure with tubular necrosis; E43 Unspecified severe protein-calorie malnutrition; E87.2 Acidosis; L03.115 Cellulitis of right lower limb; M86.171 Other acute osteomyelitis, right ankle and foot; D62 Acute posthemorrhagic anemia; E11.52 Type 2 diabetes mellitus with diabetic peripheral angiopathy with gangrene; I69.351 Hemiplegia and hemiparesis following cerebral infarction affecting right dominant side; L02.619 Cutaneous abscess of unspecified foot; R65.20 Severe sepsis without septic shock; B96.20 Unspecified Escherichia coli [E. coli] as the cause of diseases classified elsewhere; B96.89 Other specified bacterial agents as the cause of diseases classified elsewhere; D50.0 Iron deficiency anemia secondary to blood loss (chronic); E11.621 Type 2 diabetes mellitus with foot ulcer; E11.649 Type 2 diabetes mellitus with hypoglycemia without coma; E11.65 Type 2 diabetes mellitus with hyperglycemia; E83.39 Other disorders of phosphorus metabolism; E78.5 Hyperlipidemia, unspecified; E83.42 Hypomagnesemia; E87.6 Hypokalemia; I10 Essential (primary) hypertension; J44.9 Chronic obstructive pulmonary disease, unspecified; K76.0 Fatty (change of) liver, not elsewhere classified; L97.519 Non-pressure chronic ulcer of other part of right foot with unspecified severity; I70.201 Unspecified atherosclerosis of native arteries of extremities, right leg; E11.69 Type 2 diabetes mellitus with other specified complication; M85.80 Other specified disorders of bone density and structure, unspecified site; N30.90 Cystitis, unspecified without hematuria; Z59.0 Homelessness; Z79.02 Long term (current) use of antithrombotics/antiplatelets; Z79.4 Long term (current) use of insulin; Z79.82 Long term (current) use of aspirin; Z86.718 Personal history of other venous thrombosis and embolism; Z86.79 Personal history of other diseases of the circulatory system; Z87.891 Personal history of nicotine dependence; Z90.710 Acquired absence of both cervix and uterus; Z91.14 Patient's other noncompliance with medication regimen; Z95.820 Peripheral vascular angioplasty status with implants and grafts
CPT/HCPCS: 36415; 36573; 37226; 71045; 75635; 75710; 76705; 76937; 80048; 80053; 80076; 81001; 82010; 82040; 82550; 82565; 82595; 82607; 82728; 82803; 82962; 83036; 83540; 83550; 83605; 83735; 84100; 84132; 85014; 85018; 85025; 85610; 85651; 85730; 86140; 86704; 86706; 86708; 86803; 87040; 87070; 87077; 87086; 87147; 87186; 87205; 87340; 88307; 93306; 93922; 93926; 96361; 96374; 99156; 99157; 99291; A9585; C1729; G0378; J0295; J0690; J1170; J1644; J1650; J1815; J2020; J2250; J2270; J2405; J2543; J2704; J2720; J3010; J3370; J3490; Q9966; Q9967; C1714; C1751; C1769; C1884; C1894; C2623; J0330; J1200; J2060; J2310; J3475; J3480; J7030; J7040; J7050

== ENCOUNTER 2019-02-21 12:09 | Inpatient (IN) | payer MEDICAID ==
[~2019-02-21] VITALS: Ht 170.2 cm; Wt 63.5 kg
[~2019-02-21 12:09] MED LIST: ASPI-515 PO; ATOR40TA78 PO; CLOP75TA PO; INSU100I11 SQ-INSULIN; OXYC5TAB3 PO
--- NOTE | 2019-02-21 12:16 | NUR ---
PT SENT FROM CLINIC FOR RIGHT BKA KNEE AMPUTATION. WOUND DEHISCED/DRY AFEBRILE/VSS PROVIDER AT BEDSIDE- NO NEED FOR PIV AT THIS TIME. LAB TO DRAW AND PROCEED ACCORDINGLY
--- NOTE | 2019-02-21 12:19 | NUR ---
TASK RN: THIS IS A 53 Y/O FEMALE ARRIVING FROM [facility] FOR A POSSIBLE BKA INFECTION TO THE RIGHT LEG. PT WAS UNABLE TO FOLLOW POST-OP DC INSTRUCTIONS AND WENT WITHOUT SEEING MD FOR A WEEK. PT REPROTS THAT IT HAS NOW OPENED AND THERE IS BLEEDING AND PUS. BKA WAS WRAPED BY FIRST ASSISTANT MANAGER IN [facility] AND WAS ASKED TO COME HERE VIA EMS. PT REPORTS SHE ON A BLOOD THINNER "WHICH EVER IS IN YOUR COMPUTER". PT CONNECTED TO MONITORS AND CALL LIGHT IN REACH. PT INSTRUCTED ON FALL PREVENTION MEASURES AND ASKED TO PLEASE CALL FOR ASSITANCE AND PT VERBALIZED UNDERSTANDING. BEDSIDE REPORT TO MARIAN العلي. VSS
[2019-02-21 13:26] LABS: BASOPHILS # (AUTO) 0.05 x10^3/uL (0-0.1); BASOPHILS % (AUTO) 1 % (0-1); EOSINOPHILS # (AUTO) 0.17 x10^3/uL (0-0.4); EOSINOPHILS % (AUTO) 3 % (1-7); LYMPHOCYTES # (AUTO) 1.82 x10^3/uL (1-3.4); LYMPHOCYTES % (AUTO) 28 % (22-44); MD NO; MEAN CORPUSCULAR HEMOGLOBIN 31.8 pg (27.0-34.8); MEAN CORPUSCULAR HGB CONC 32.6 g/dL (32.4-35.8); MEAN CORPUSCULAR VOLUME 97.6 fL (80-100); MONOCYTES # (AUTO) 0.33 x10^3/uL (0.2-0.8); MONOCYTES % (AUTO) 5 % (2-9); NEUTROPHILS # (AUTO) 4.24 x10^3/uL (1.8-6.8); NEUTROPHILS % (AUTO) 64 % (42-75); PLATELET COUNT 411 x10^3/uL (130-400); RED BLOOD COUNT 3.62 x10^6/uL (3.82-5.3); RED CELL DISTRIBUTION WIDTH 14.7 % (9.6-15.2)
[2019-02-21 13:40] LABS: ANION GAP 8 mmol/L (5-15); CALCIUM 8.7 mg/dL (8.5-10.1); CREATININE 0.78 mg/dL (0.55-1.02)
--- NOTE | 2019-02-21 13:40 | NUR ---
WITH TESTING RESULTS PROVIDER NOW WOULD LIKE PIV/IVF/ABX PROVIDER ASKED FOR PAIN MEDICINE PATIENT NOW REPORTING SURGICAL INCISION PAINFUL VSS ON NIBP/POX
[2019-02-21 13:44] LABS: CHLORIDE 118 mmol/L (98-107)
[2019-02-21] MEDS ORDERED: SODIUM CHLORIDE 0.9% 1,000ML IVBOLUS ONE (14:00)
[2019-02-21] MEDS ORDERED: MORPHINE SULFATE 4 MG/ML, 1ML ONE (14:09)
[2019-02-21] MEDS ORDERED: CEFAZOLIN PMX 1GM/50ML 50 ML ONE (14:09)
[2019-02-21] MEDS ORDERED: KETOROLAC 30 MG/1 ML ONE (14:10)
[2019-02-21 14:19] LABS: HCT (SEDRATE) 35.3 % (34.6-47.8)
--- NOTE | 2019-02-21 14:20 | NUR ---
REPORT TAKEN FROM ZOHRA FONSECA. [facility] AT BEDSIDE TO ASSESS PT AND UPDATE ON POC.
--- NOTE | 2019-02-21 14:20 | NUR ---
REPORT TO SARAHI العلي
[2019-02-21] MEDS: CEFAZOLIN PMX 1GM/50ML 50 ML IV ONE ×2 (14:25→14:48)
[2019-02-21] MEDS ORDERED: MORPHINE SULFATE 4 MG/ML, 1ML IVPush PRN (14:30)
[2019-02-21] MEDS ORDERED: VANCOMYCIN PER PHARMACY MC PRN ×2 (14:30)
[2019-02-21] MEDS ORDERED: ONDANSETRON 2MG/ML, 2ML IVPush PRN (14:30)
[2019-02-21] MEDS ORDERED: KETOROLAC 30 MG/1 ML IVPush ONE (14:30)
[2019-02-21] MEDS ORDERED: hydrALAzine 20 MG/ML, 1ML IVPush PRN (14:30)
[2019-02-21] MEDS ORDERED: LISINOPRIL 5 MG TABLET PO ONE (15:00)
[2019-02-21] MEDS ORDERED: PIPERACILLIN/TAZO/PMX 3.375GM 50 ML IV ONE (15:00)
--- NOTE | 2019-02-21 15:00 | NUR ---
REPORT GIVEN TO ZOHRA BEALSEY ON [address] AT THIS TIME.
[2019-02-21] MEDS ORDERED: ENOXAPARIN 40 MG/0.4 ML ONE (15:03)
[2019-02-21] MEDS ORDERED: PIPERACILLIN/TAZO/PMX 3.375GM 50 ML ONE (15:03)
[2019-02-21] MEDS: PIPERACILLIN/TAZO/PMX 3.375GM 50 ML IV SCH ×2 (15:04→21:01)
[2019-02-21] MEDS: ENOXAPARIN 40 MG/0.4 ML SQ SCH (15:05)
[2019-02-21 15:10] LABS: HEMOGLOBIN A1C 6.5 % (4.2-6.3)
[2019-02-21 15:26] VITALS: BP 129/88
[2019-02-21] MEDS: SODIUM CHLORIDE 0.9% 1,000 ML IV SCH (15:46)
[2019-02-21] MEDS ORDERED: VANCOMYCIN 1,300 MG in SODIUM CHLORIDE 0.9% 250 ML IV ONE (16:00)
[2019-02-21] MEDS ORDERED: PHARMACOKINETIC MONITORING MC PRN (16:00)
[2019-02-21] MEDS: MORPHINE SULFATE 4 MG/ML, 1ML IVPush PRN ×2 (16:27→19:59)
[2019-02-21] MEDS: VANCOMYCIN 1,200 MG in SODIUM CHLORIDE 0.9% 250 ML IV SCH (16:34)
[2019-02-21] MEDS: ACETAMINOPHEN 325 MG TABLET PO PRN (17:52)
[2019-02-21 19:54] VITALS: BP 121/76
[2019-02-21] MEDS: ATORVASTATIN 40 MG TABLET PO SCH (19:59)
[2019-02-21] MEDS: INSULIN LISPRO 100 UNITS/ML, PEN SQ-INSULIN SCH (23:19)
[2019-02-22 02:10] VITALS: BP 116/67
[2019-02-22] MEDS: PIPERACILLIN/TAZO/PMX 3.375GM 50 ML IV SCH ×4 (03:19→21:57)
[2019-02-22] MEDS: MORPHINE SULFATE 4 MG/ML, 1ML IVPush PRN ×3 (03:23→22:02)
[2019-02-22] MEDS: ACETAMINOPHEN 325 MG TABLET PO PRN (03:25)
[2019-02-22] MEDS: SODIUM CHLORIDE 0.9% 1,000 ML IV SCH ×2 (03:46→17:06)
[2019-02-22] MEDS: VANCOMYCIN 1,200 MG in SODIUM CHLORIDE 0.9% 250 ML IV SCH ×2 (05:13→16:38)
[2019-02-22 05:19] LABS: BASOPHILS # (AUTO) 0.05 x10^3/uL (0-0.1); BASOPHILS % (AUTO) 1 % (0-1); EOSINOPHILS # (AUTO) 0.15 x10^3/uL (0-0.4); EOSINOPHILS % (AUTO) 3 % (1-7); LYMPHOCYTES % (AUTO) 14 % (22-44); MD NO; MEAN CORPUSCULAR HEMOGLOBIN 32.1 pg (27.0-34.8); MEAN CORPUSCULAR HGB CONC 33.3 g/dL (32.4-35.8); MEAN CORPUSCULAR VOLUME 96.4 fL (80-100); MEAN PLATELET VOLUME 8.1 fL (7.4-10.4); MONOCYTES # (AUTO) 0.13 x10^3/uL (0.2-0.8); MONOCYTES % (AUTO) 3 % (2-9); NEUTROPHILS % (AUTO) 79 % (42-75); PLATELET COUNT 295 x10^3/uL (130-400); RED BLOOD COUNT 3.25 x10^6/uL (3.82-5.3); RED CELL DISTRIBUTION WIDTH 14.6 % (9.6-15.2)
[2019-02-22 05:21] LABS: CHLORIDE 120 mmol/L (98-107)
[2019-02-22 05:25] LABS: ALANINE AMINOTRANSFERASE 18 U/L (12-78); ALBUMIN 2.2 g/dL (3.4-5.0); ALKALINE PHOSPHATASE 98 U/L (45-117); ANION GAP 8 mmol/L (5-15); BILIRUBIN,TOTAL 0.4 mg/dL (0.2-1.0); CALCIUM 7.7 mg/dL (8.5-10.1); CREATININE 0.62 mg/dL (0.55-1.02); TOTAL PROTEIN 5.6 g/dL (6.4-8.2)
[2019-02-22] MEDS: INSULIN LISPRO 100 UNITS/ML, PEN SQ-INSULIN SCH ×4 (07:00→21:00)
[2019-02-22 07:27] VITALS: BP 111/66
[2019-02-22] MEDS ORDERED: HYDROmorphone 1 MG/ML, 1ML INJ IV ONE (08:30)
[2019-02-22] MEDS ORDERED: ASPIRIN 81 MG TABLET EC PO SCH (09:00)
[2019-02-22] MEDS ORDERED: HYDROmorphone 2 MG/ML, 1ML ONE (09:04)
[2019-02-22] MEDS: CLOPIDOGREL 75 MG TABLET PO SCH ×2 (09:17→18:04)
[2019-02-22] MEDS ORDERED: POTASSIUM CHLORIDE 20 MEQ TAB.ER.PRT PO ONE (10:30)
[2019-02-22] MEDS ORDERED: MAGNESIUM SULFATE PMX 2GM/50ML 50 ML IV ONE (10:30)
[2019-02-22 13:16] VITALS: BP 93/53
[2019-02-22] MEDS: ENOXAPARIN 40 MG/0.4 ML SQ SCH (14:14)
[2019-02-22 19:47] VITALS: BP 100/66
[2019-02-22] MEDS ORDERED: MAGNESIUM OXIDE 400 MG TABLET PO SCH (21:00)
[2019-02-22] MEDS: ATORVASTATIN 40 MG TABLET PO SCH (21:57)
[2019-02-23 01:14] VITALS: BP 101/61
[2019-02-23 04:03] LABS: BASOPHILS # (AUTO) 0.02 x10^3/uL (0-0.1); BASOPHILS % (AUTO) 1 % (0-1); EOSINOPHILS # (AUTO) 0.17 x10^3/uL (0-0.4); EOSINOPHILS % (AUTO) 4 % (1-7); LYMPHOCYTES # (AUTO) 0.73 x10^3/uL (1-3.4); LYMPHOCYTES % (AUTO) 19 % (22-44); MD NO; MEAN CORPUSCULAR HEMOGLOBIN 30.9 pg (27.0-34.8); MEAN CORPUSCULAR HGB CONC 32.7 g/dL (32.4-35.8); MEAN CORPUSCULAR VOLUME 94.6 fL (80-100); MEAN PLATELET VOLUME 7.8 fL (7.4-10.4); MONOCYTES % (AUTO) 5 % (2-9); NEUTROPHILS # (AUTO) 2.72 x10^3/uL (1.8-6.8); NEUTROPHILS % (AUTO) 71 % (42-75); PLATELET COUNT 323 x10^3/uL (130-400); RED BLOOD COUNT 3.25 x10^6/uL (3.82-5.3); RED CELL DISTRIBUTION WIDTH 13.8 % (9.6-15.2)
[2019-02-23 04:12] LABS: CHLORIDE 119 mmol/L (98-107)
[2019-02-23] MEDS: PIPERACILLIN/TAZO/PMX 3.375GM 50 ML IV SCH ×3 (04:17→18:18)
[2019-02-23 04:18] LABS: ALANINE AMINOTRANSFERASE 20 U/L (12-78); ALBUMIN 2.2 g/dL (3.4-5.0); ALKALINE PHOSPHATASE 101 U/L (45-117); ANION GAP 7 mmol/L (5-15); BILIRUBIN,TOTAL 0.3 mg/dL (0.2-1.0); CREATININE 0.64 mg/dL (0.55-1.02); TOTAL PROTEIN 5.6 g/dL (6.4-8.2); VANCOMYCIN,TROUGH 22.7 mcg/mL (5.0-10.0)
[2019-02-23] MEDS: MORPHINE SULFATE 4 MG/ML, 1ML IVPush PRN (04:36)
[2019-02-23] MEDS: VANCOMYCIN 1,200 MG in SODIUM CHLORIDE 0.9% 250 ML IV SCH (05:00)
[2019-02-23] MEDS: INSULIN LISPRO 100 UNITS/ML, PEN SQ-INSULIN SCH ×4 (07:00→21:39)
[2019-02-23 07:44] LABS: PROTHROMBIN TIME 10.5 Seconds (9.6-11.5)
[2019-02-23 08:28] VITALS: BP 102/62
[2019-02-23 08:42] LABS: C-REACTIVE PROTEIN, QUANT 1.3 mg/dL (0.02-0.49)
[2019-02-23] MEDS: SODIUM CHLORIDE 0.9% 1,000 ML IV SCH ×2 (09:00→22:29)
[2019-02-23] MEDS ORDERED: FENTANYL PF 250 MCG/5ML ONE (09:29)
[2019-02-23] MEDS ORDERED: MIDAZOLAM 1 MG/ML, 2ML ONE (09:29)
[2019-02-23] MEDS ORDERED: KETAMINE 10 MG/ML, 20ML ONE (09:31)
[2019-02-23] MEDS ORDERED: CEFAZOLIN 1,000 MG ONE (09:40)
[2019-02-23] MEDS ORDERED: ONDANSETRON 2MG/ML, 2ML ONE (09:40)
[2019-02-23] MEDS ORDERED: PROPOFOL 10 MG/ML, 20ML ONE (09:40)
[2019-02-23] MEDS ORDERED: DEXAMETHASONE 4 MG/ML, 1ML ONE (09:40)
[2019-02-23] MEDS ORDERED: MEPERIDINE/PF 100 MG/ML ONE (10:07)
[2019-02-23] MEDS ORDERED: hydrALAzine 20 MG/ML, 1ML IV PRN (10:30)
[2019-02-23] MEDS ORDERED: HYDROmorphone 2 MG/ML, 1ML IVPush PRN (10:30)
[2019-02-23] MEDS ORDERED: HALOPERIDOL 5 MG/ML IV PRN (10:30)
[2019-02-23] MEDS ORDERED: ALBUTEROL SULFATE 2.5 MG/3 ML NPPB PRN (10:30)
[2019-02-23] MEDS ORDERED: OXYcodone 5 MG/5 ML ORAL.SOL UDC PO PRN (10:30)
[2019-02-23] MEDS ORDERED: PROMETHAZINE 25 MG/ML, 1ML IV PRN (10:30)
[2019-02-23] MEDS ORDERED: MEPERIDINE/PF 25MG/0.5ML IVPush PRN (10:30)
[2019-02-23] MEDS ORDERED: ACETAMINOPHEN 325 MG TABLET PO PRN (10:30)
[2019-02-23] MEDS: FENTANYL PF 100 MCG/2ML IV PRN ×3 (11:25→11:35)
[2019-02-23] MEDS ORDERED: OXYcodone 5 MG/5 ML ORAL.SOL UDC ONE (11:26)
[2019-02-23] MEDS ORDERED: FENTANYL PF 100 MCG/2ML ONE (11:26)
[2019-02-23] MEDS ORDERED: PROMETHAZINE 25 MG/ML, 1ML ONE (11:52)
[2019-02-23] MEDS: FENTANYL 1500 MCG/30 ML PCA IV PRN (12:01)
[2019-02-23] MEDS: ENOXAPARIN 40 MG/0.4 ML SQ SCH (14:30)
[2019-02-23 15:31] VITALS: BP 126/78
[2019-02-23 19:56] VITALS: BP 126/77
[2019-02-23] MEDS: ATORVASTATIN 40 MG TABLET PO SCH (21:39)
[2019-02-24 00:34] VITALS: BP 124/71
[2019-02-24] MEDS: PIPERACILLIN/TAZO/PMX 3.375GM 50 ML IV SCH ×4 (03:36→21:53)
[2019-02-24 04:03] VITALS: BP 139/81
[2019-02-24] MEDS: INSULIN LISPRO 100 UNITS/ML, PEN SQ-INSULIN SCH ×4 (06:38→21:54)
[2019-02-24 06:52] VITALS: BP 109/83
[2019-02-24] MEDS: FENTANYL 1500 MCG/30 ML PCA IV PRN (07:55)
[2019-02-24] MEDS: ENOXAPARIN 40 MG/0.4 ML SQ SCH (07:55)
[2019-02-24] MEDS ORDERED: ACETAMINOPHEN 325 MG TABLET PO PRN (08:00)
[2019-02-24 12:35] VITALS: BP 158/80
[2019-02-24] MEDS: SODIUM CHLORIDE 0.9% 1,000 ML IV SCH (16:00)
[2019-02-24] MEDS: KETOROLAC 30 MG/1 ML IVPush SCH (17:52)
[2019-02-24 18:27] VITALS: BP 143/84
[2019-02-24] MEDS: ATORVASTATIN 40 MG TABLET PO SCH (21:53)
[2019-02-25 00:10] VITALS: BP 146/82
[2019-02-25] MEDS: FENTANYL 1500 MCG/30 ML PCA IV PRN ×2 (00:29→17:09)
[2019-02-25] MEDS: KETOROLAC 30 MG/1 ML IVPush SCH ×5 (00:32→23:46)
[2019-02-25] MEDS: PIPERACILLIN/TAZO/PMX 3.375GM 50 ML IV SCH (03:51)
[2019-02-25] MEDS: SODIUM CHLORIDE 0.9% 1,000 ML IV SCH ×2 (05:56→21:02)
[2019-02-25] MEDS: INSULIN LISPRO 100 UNITS/ML, PEN SQ-INSULIN SCH ×4 (07:00→21:00)
[2019-02-25 08:47] VITALS: BP 120/81
[2019-02-25] MEDS: ACETAMINOPHEN 325 MG TABLET PO SCH ×3 (09:11→20:59)
[2019-02-25] MEDS: ENOXAPARIN 40 MG/0.4 ML SQ SCH (09:14)
[2019-02-25] MEDS ORDERED: LEVOFLOXACIN/PMX 750MG/150ML 150 ML IV ONE (10:00)
[2019-02-25 12:30] VITALS: BP 133/81
[2019-02-25 20:15] VITALS: BP 147/77
[2019-02-25] MEDS: ATORVASTATIN 40 MG TABLET PO SCH (20:59)
[2019-02-26 01:45] VITALS: BP 146/82
[2019-02-26] MEDS: ACETAMINOPHEN 325 MG TABLET PO SCH ×4 (03:15→20:32)
[2019-02-26] MEDS: KETOROLAC 30 MG/1 ML IVPush SCH ×4 (05:26→23:33)
[2019-02-26] MEDS: ASPIRIN 81 MG TABLET EC PO SCH (05:26)
[2019-02-26] MEDS: INSULIN LISPRO 100 UNITS/ML, PEN SQ-INSULIN SCH ×4 (07:00→20:41)
[2019-02-26 07:51] VITALS: BP 120/80
[2019-02-26] MEDS: LEVOFLOXACIN 750 MG TABLET PO SCH (09:01)
[2019-02-26] MEDS: ONDANSETRON 4 MG TABLET PO PRN (09:01)
[2019-02-26] MEDS: CLOPIDOGREL 75 MG TABLET PO SCH (09:15)
[2019-02-26] MEDS: ENOXAPARIN 40 MG/0.4 ML SQ SCH (09:15)
[2019-02-26] MEDS: MORPHINE SULFATE 4 MG/ML, 1ML IVPush PRN ×3 (12:31→19:01)
[2019-02-26] MEDS: SODIUM CHLORIDE 0.9% 1,000 ML IV SCH (13:00)
[2019-02-26 14:00] VITALS: BP 125/86
[2019-02-26 19:50] VITALS: BP 118/73
[2019-02-26] MEDS: ATORVASTATIN 40 MG TABLET PO SCH (20:32)
[2019-02-27] MEDS: ACETAMINOPHEN 325 MG TABLET PO SCH ×4 (02:48→20:02)
[2019-02-27 03:07] VITALS: BP 109/64
[2019-02-27] MEDS: ASPIRIN 81 MG TABLET EC PO SCH (05:26)
[2019-02-27] MEDS: MORPHINE SULFATE 4 MG/ML, 1ML IVPush PRN ×3 (05:26→19:35)
[2019-02-27] MEDS: KETOROLAC 30 MG/1 ML IVPush SCH ×4 (05:26→23:39)
[2019-02-27] MEDS: SODIUM CHLORIDE 0.9% 1,000 ML IV SCH ×2 (06:08→20:14)
[2019-02-27] MEDS: INSULIN LISPRO 100 UNITS/ML, PEN SQ-INSULIN SCH ×4 (07:00→20:13)
[2019-02-27 08:07] VITALS: BP 132/72
[2019-02-27] MEDS: CLOPIDOGREL 75 MG TABLET PO SCH (08:43)
[2019-02-27] MEDS: ENOXAPARIN 40 MG/0.4 ML SQ SCH (08:43)
[2019-02-27] MEDS: LEVOFLOXACIN 750 MG TABLET PO SCH (08:43)
[2019-02-27] MEDS ORDERED: ACET325T26 PO (09:40)
[2019-02-27] MEDS ORDERED: LEVO750T26 PO (09:40)
[2019-02-27 13:17] VITALS: BP 134/83
[2019-02-27 19:46] VITALS: BP 114/86
[2019-02-27] MEDS: ATORVASTATIN 40 MG TABLET PO SCH (20:02)
[2019-02-28 01:17] VITALS: BP 135/76
[2019-02-28] MEDS: ACETAMINOPHEN 325 MG TABLET PO SCH ×4 (02:30→17:49)
[2019-02-28] MEDS: ASPIRIN 81 MG TABLET EC PO SCH (04:55)
[2019-02-28] MEDS: KETOROLAC 30 MG/1 ML IVPush SCH ×3 (04:56→17:17)
[2019-02-28] MEDS: INSULIN LISPRO 100 UNITS/ML, PEN SQ-INSULIN SCH ×3 (07:00→16:00)
[2019-02-28 07:45] VITALS: BP 139/82
[2019-02-28] MEDS: CLOPIDOGREL 75 MG TABLET PO SCH (09:00)
[2019-02-28] MEDS: ENOXAPARIN 40 MG/0.4 ML SQ SCH (09:00)
[2019-02-28] MEDS: LEVOFLOXACIN 750 MG TABLET PO SCH (09:00)
[2019-02-28] MEDS ORDERED: HYDROmorphone 2 MG/ML, 1ML IVPush ONE (12:00)
[2019-02-28 13:41] VITALS: BP 150/89
[2019-02-28] MEDS: ONDANSETRON 4 MG TABLET PO PRN (13:58)
[2019-02-28] MEDS ORDERED: SODIUM CHLORIDE 0.9% 1,000 ML IV SCH (14:26)
[2019-02-28 19:12] VITALS: BP 134/63
== END 2019-02-28 19:55 | disposition home health service (06) | DRG 475 ==
LOC: ED 14:14 → EDIP 14:26 → 4NOR 15:30
PROVIDERS: ADMIT Family Medicine; ATTEND Family Medicine
PROC: 0Y6C0Z3 Detachment at Right Upper Leg, Low, Open Approach (ICD-10-PCS; principal; 2019-02-23 09:30)
DX: T87.81 Dehiscence of amputation stump (principal); E11.52 Type 2 diabetes mellitus with diabetic peripheral angiopathy with gangrene; L03.115 Cellulitis of right lower limb; M86.161 Other acute osteomyelitis, right tibia and fibula; E11.65 Type 2 diabetes mellitus with hyperglycemia; E11.69 Type 2 diabetes mellitus with other specified complication; E87.6 Hypokalemia; E83.42 Hypomagnesemia; F17.200 Nicotine dependence, unspecified, uncomplicated; I10 Essential (primary) hypertension; J44.9 Chronic obstructive pulmonary disease, unspecified; Y83.5 Amputation of limb(s) as the cause of abnormal reaction of the patient, or of later complication, without mention of misadventure at the time of the procedure; Z79.01 Long term (current) use of anticoagulants; Z86.73 Personal history of transient ischemic attack (TIA), and cerebral infarction without residual deficits; Z89.511 Acquired absence of right leg below knee; Z88.8 Allergy status to other drugs, medicaments and biological substances; Z71.6 Tobacco abuse counseling
CPT/HCPCS: 36415; 80048; 80053; 80202; 82040; 82962; 83036; 83735; 85025; 85610; 85651; 85730; 86140; 87040; 87070; 87077; 87186; 87205; 88307; 88311; 93005; 96374; G0378; J0690; J1100; J1170; J1650; J1885; J1956; J2250; J2405; J2543; J2550; J2704; J3010; J3370; Q0162; J1815; J2175; J2270; J3475; J7030; J7050